=== PATIENT | female | born 1960 | race Caucasian/White ===

== ENCOUNTER 2017-02-13 09:10 | Observation (INO) | payer MEDICAID ==
--- NOTE | 2017-02-13 09:42 | CPEKG ---
Heart Rate: 77 RR Interval: 779 P-R Interval: 156 QRSD Interval: 100 QT Interval: 412 QTC Interval: 467 P Nebo: -6 QRS Nebo: 11 T Wave Nebo: 10 EKG Severity - BORDERLINE ECG - EKG Impression: SINUS RHYTHM EKG Impression: VENTRICULAR PREMATURE COMPLEX EKG Impression: BORDERLINE R WAVE PROGRESSION, ANTERIOR LEADS Electronically Signed By: Kurt Zaldivar 13-Feb-2017 12:02:57
[2017-02-13 09:52] LABS: % IMMATURE GRANULYOCYTES 0.2 % (0.0-1.1); ABSOLUTE IMMATURE GRANULOCYTES 0.01 10^3/uL (0.00-0.10); ADD DIFF? NO; ADD MORPH? NO; ADD SCAN? NO; ATYPICAL LYMPHOCYTE FLAG 0 (0-99); FRAGMENT RBC FLAG 0 (0-99); HEMATOCRIT 47.6 % (38.0-47.0); HEMOGLOBIN 15.8 g/dL (12.6-16.3); LEFT SHIFT FLG 0 (0-99); LIPEMIA HEMOLYSIS FLAG 80 (0-99); MEAN CELL HEMOGLOBIN 31.4 pg (27.9-34.1); MEAN CELL HEMOGLOBIN CONCENTR. 33.2 g/dL (32.4-36.7); MEAN CELL VOLUME 94.6 fL (81.5-99.8); MEAN PLATELET VOLUME 10.1 fL (8.7-11.7); PLATELET CLUMPS FLAG 20 (0-99); PLATELET COUNT 222 10^3/uL (150-400); RED BLOOD CELL COUNT 5.03 10^6/uL (4.18-5.33); RED CELL DISTRIBUTION WIDTH 13.2 % (11.5-15.2)
--- NOTE | 2017-02-13 09:53 | EDPHY ---
H & P Stated Complaint: "pulling and tugging" sensation to left chest since 8am Time Seen by Provider: 02/13/17 09:33 HPI/ROS: CHIEF COMPLAINT: Left-sided chest discomfort HISTORY OF PRESENT ILLNESS: 56-year-old female with medical history significant for Moyer disease, mitral valve replacement with prosthesis in 2009 , arrives via private vehicle after she woke with left-sided chest "tugging" at 8:00 a.m. today lasting approximately 345 minutes now by enlarged resolved. Not described as a tearing . Not described as pleuritic. This discomfort awoke her. Was associated with dizziness, left arm discomfort, dyspnea, near syncope. No diaphoresis. No headache. No back pain. No abdominal pain. No nausea or vomiting. No peripheral edema She hikes 3-4 times per week approximately 1/4 mi and notes a decrease in her exercise ability recently. She last hiked 25 minutes yesterday and notes an increase in the left-sided chest "tugging" as well as dyspnea yesterday. PRIMARY CARE PROVIDER:Dr. Pilo House. Dr. Carlyle Faust. Dr. Michele REVIEW OF SYSTEMS: A ten point review of systems was performed and is negative with the exception of the items mentioned in the HPI PAST MEDICAL & SURGICAL HISTORY: Moyer disease. Mitral valve replacement w/ prosthesis 2009 SOCIAL HISTORY: Nonsmoker. No illicit drug use PHYSICAL EXAM (Prior to examination, patient consented to physical exam, hands were washed and my usual and customary physical exam procedures followed) 1) GENERAL: Well-developed, well-nourished, alert and oriented. Appears to be in no acute distress. 2) HEAD: Normocephalic 3) HEENT: Pupils equal, round, reactive to light bilaterally. Sclera anicteric. 4) NECK: Full range of motion, no meningeal signs. No bruit 5) LUNGS: Clear auscultation bilaterally, no wheezes, no rhonchi, no retractions. 6) HEART: Regular rate and rhythm 7) ABDOMEN: No guarding, no rebound, no focal tenderness, negative McBurney's, negative Bray's, negative Rovsing's, negative peritoneal sign, no palpable or pulsatile mass 8) MUSCULOSKELETAL: No peripheral edema or discoloration. 9) BACK: No CVA tenderness, no visual or palpable abnormality. 10) SKIN: No rash, no petechiae. DIFFERENTIAL DIAGNOSIS: In no particular order, including but not limited to myocardial ischemia, pulmonary embolus, Dissection,chest wall pain, pleural inflammation and pulmonary infectious causes. - Personal History LMP (Females 10-55): Post Menopausal - Medical/Surgical History Hx Asthma: No Hx Chronic Respiratory Disease: No Hx Diabetes: No Hx Cardiac Disease: Yes Hx Renal Disease: No Hx Cirrhosis: No Hx Alcoholism: No Hx HIV/AIDS: No Hx Splenectomy or Spleen Trauma: No Other PMH: Mitral valve disorder. - Social History Smoking Status: Never smoked Constitutional: Initial Vital Signs Temperature (C) 36.4 C 02/13/17 09:11 Heart Rate 81 02/13/17 09:11 Respiratory Rate 18 02/13/17 09:11 Blood Pressure 110/83 H 02/13/17 09:11 O2 Sat (%) 94 02/13/17 09:11 O2 Delivery Mode Room Air Allergies/Adverse Reactions: indomethacin [Indomethacin] Allergy (Intermediate, Verified 11/02/10 12:11) DIZZINESS yeast, dried Allergy (Unknown, Verified 11/02/10 12:11) Unknown Home Medications: Medication Instructions Recorded COUMADIN 11/02/10 OXYCODONE HCL 11/02/10 Percocet 11/02/10 Spironolactone 11/02/10 Aspirin EC [Aspirin EC 81 mg] 81 mg PO DAILY 01/23/11 Cephalexin [Keflex] 500 mg PO TID #30 cap 01/23/11 Warfarin Sodium [Coumadin] 7.5 mg PO DAILY 01/23/11 oxyCODONE/APAP 5/325 [Percocet tab PO PRN 01/23/11 5/325] Hydrocodone Bit/Acetaminophen 1 - 2 tab PO Q4-6PRN PRN #14 tab 01/07/13 [Vicodin 5/500] Promethazine HCl [Phenergan 25mg 25 mg PO TID PRN #10 tab 01/07/13 (RX)] Medical Decision Making - Diagnostics Imaging: Chest, PA and Lateral History: Chest pain, history of mitral valve replacement Comparison: January 06, 2013 Findings: Lungs are clear, without infiltrate or consolidation. Heart size and pulmonary vascularity are normal. Median sternotomy wires and a mitral valve replacement remain in place. There is no adenopathy or mass lesion. There is no pleural effusion or pneumothorax. Bones are unremarkable for age. Impression: No source for chest pain identified. Dictated By: Jonathan Moreno MD Images reviewed by myself and Dr Zaldivar ED Course/Re-evaluation: 9:46 a.m.: Discussed case with Dr. Zaldivar in the ER. 10:30 a.m.: Phone consultation with cardiology PA Steve Monge is familiar with the patient's medical history. He request patient be admitted the hospitalist service and Cardiology will consult. patient re-examined. She is asymptomatic. She agrees to admission 10:38 a.m.: Phone consultation with hospitalist Raquel, [facility] April Marquez . - Data Points Laboratory Results: Laboratory Results 02/13/17 09:33 02/13/17 09:33 02/13/17 02/13/17 02/13/17 09:33 09:33 09:33 WBC 6.60 10^3/uL 10^3/uL (3.80-9.50) RBC 5.03 10^6/uL 10^6/uL (4.18-5.33) Hgb 15.8 g/dL g/dL (12.6-16.3) Hct 47.6 % H % (38.0-47.0) MCV 94.6 fL fL (81.5-99.8) MCH 31.4 pg pg (27.9-34.1) MCHC 33.2 g/dL g/dL (32.4-36.7) RDW 13.2 % % (11.5-15.2) Plt Count 222 10^3/uL 10^3/uL (150-400) MPV 10.1 fL fL (8.7-11.7) Neut % (Auto) 49.8 % % (39.3-74.2) Lymph % (Auto) 41.8 % % (15.0-45.0) Henderson % (Auto) 5.5 % % (4.5-13.0) Eos % (Auto) 2.4 % % (0.6-7.6) Baso % (Auto) 0.3 % % (0.3-1.7) Nucleat RBC Rel Count 0.0 % % (0.0-0.2) Absolute Neuts (auto) 3.29 10^3/uL 10^3/uL (1.70-6.50) Absolute Lymphs (auto) 2.76 10^3/uL 10^3/uL (1.00-3.00) Absolute Monos (auto) 0.36 10^3/uL 10^3/uL (0.30-0.80) Absolute Eos (auto) 0.16 10^3/uL 10^3/uL (0.03-0.40) Absolute Basos (auto) 0.02 10^3/uL 10^3/uL (0.02-0.10) Absolute Nucleated RBC 0.00 10^3/uL 10^3/uL (0-0.01) Immature Gran % 0.2 % % (0.0-1.1) Immature Gran # 0.01 10^3/uL 10^3/uL (0.00-0.10) PT 19.5 SEC H SEC (12.0-15.0) INR 1.64 H (0.83-1.16) APTT 32.9 SEC SEC (23.0-38.0) Sodium 139 mEq/L mEq/L (134-144) Potassium 3.9 mEq/L mEq/L (3.5-5.2) Chloride 105 mEq/L mEq/L (97-110) Carbon Dioxide 26 mEq/l mEq/l (22-31) Anion Gap 8 mEq/L mEq/L (8-16) BUN 18 mg/dL mg/dL (7-23) Creatinine 0.7 mg/dL mg/dL (0.6-1.0) Estimated GFR > 60 Glucose 112 mg/dL H mg/dL (70-100) Calcium 9.6 mg/dL mg/dL (8.5-10.4) Troponin I 0.015 ng/mL ng/mL (0-0.034) Departure - Departure Disposition: Home, Routine, Self-Care Clinical Impression: Subtherapeutic international normalized ratio (INR), History of mitral valve repair Chest pain Qualifiers: Chest pain type: unspecified Qualified Code(s): R07.9 - Chest pain, unspecified Condition: Fair
[2017-02-13 09:57] LABS: ANION GAP 8 mEq/L (8-16); CALCIUM 9.6 mg/dL (8.5-10.4); CARBON DIOXIDE 26 mEq/l (22-31); CHLORIDE 105 mEq/L (97-110); CREATININE 0.7 mg/dL (0.6-1.0); GLOMERULAR FILTRATION RATE > 60; GLUCOSE 112 mg/dL (70-100); POTASSIUM 3.9 mEq/L (3.5-5.2); SODIUM 139 mEq/L (134-144)
[2017-02-13 10:09] LABS: TROPONIN I 0.015 ng/mL (0-0.034)
[2017-02-13 10:10] LABS: INR 1.64 (0.83-1.16); PROTIME(PATIENT) 19.5 SEC (12.0-15.0)
[2017-02-13 10:11] LABS: APTT 32.9 SEC (23.0-38.0)
[2017-02-13] MEDS ORDERED: ONDANSETRON 4 MG/2 ML VIAL IVP PRN (11:43)
[2017-02-13] MEDS ORDERED: ONDANSETRON DISINTEGRATING 4 MG TAB PO PRN (11:43)
[2017-02-13] MEDS ORDERED: ACETAMINOPHEN 325 MG TAB PO PRN (11:43)
[2017-02-13] MEDS ORDERED: ALPRAZolam 0.25 MG TAB PO PRN (12:44)
--- NOTE | 2017-02-13 13:55 | CPEKG ---
Heart Rate: 72 RR Interval: 833 P-R Interval: 148 QRSD Interval: 100 QT Interval: 416 QTC Interval: 456 P Andover: -1 QRS Andover: 29 T Wave Andover: 22 EKG Severity - NORMAL ECG - EKG Impression: SINUS RHYTHM Electronically Signed By: Arthur Mittal 13-Feb-2017 21:22:52
--- NOTE | 2017-02-13 14:05 | GHP ---
[f rep st] HISTORY AND PHYSICAL DATE OF ADMISSION: 02/13/2017 CHIEF COMPLAINT: Left-sided chest pain. HISTORY OF PRESENT ILLNESS: Patient is a 56-year-old female, followed by Dr. Butts with Cardiology, whose past medical history includes Moyer disease, mitral valve replacement in 2009, who presented after she awoke suddenly with sharp left-sided chest pain. It felt like a tugging in the left upper chest at 8 a.m. It lasted approximately 30 minutes. However, she still has residual pain that is dull and achy in nature. She had some dizziness, mild nausea, and left hand numbness this morning. Denies PND, pillow orthopnea, or peripheral edema. She hikes 3-4 times a week, approximately 1/8 of a mile, and has noted that it has become more difficult and feels short of breath, along with an increased tugging sensation in her chest. She noted dyspnea with her hike yesterday. PRIMARY DUDE RANCH MANAGER: Dr. Faust. REVIEW OF SYSTEMS: I completed a 10-point review of systems, negative except as noted in HPI. PAST MEDICAL HISTORY: Pre-diabetes, mitral valve repair, obesity, hyperlipidemia, SERGIO on CPAP. PAST SURGICAL HISTORY: Mitral valve repair in 2009. Hysterectomy in 2002. SOCIAL HISTORY: Quit tobacco in 1999. Occasional alcohol. Lives in [facility]. Used to be a neuroscientist. FAMILY HISTORY: no CAD MEDICATIONS: See medication reconciliation. ALLERGIES: Indomethacin and yeast. PHYSICAL EXAM: VITAL SIGNS: Temperature 36.7, blood pressure 117/75, heart rate 70s, respirations 18, 94% on room air. GENERAL: Obese white female in no acute distress. HEENT: PERRLA. EOMI. Oropharynx clear. CV: Regular rate and rhythm. No murmurs, gallops, or rubs. Some reproducible component of left upper chest discomfort. No peripheral edema. LUNGS: Clear to auscultation. No crackles. GI: Obese. Soft, nontender, nondistended. Positive bowel sounds. : No Mera. MUSCULOSKELETAL: Has 5/5 upper and lower extremity strength. NEURO: 2 through 12 intact. PSYCH: Alert oriented x3. LABS: WBC 6.6, hemoglobin 15, hematocrit 47, platelets 222. D-dimer is pending. INR is 1.6. PT is 19. Sodium 139, potassium 3.9, chloride 105, carbon dioxide 26, BUN 18, creatinine 0.7. Glucose 112. Troponin 0.015. BNP is 165. IMAGING: X-ray: Personally reviewed by me. No sternotomy wires in place. No opacity. Mild blunting of costophrenic angles. EKG: Personally reviewed by me. Poor R-wave progression in anterior leads. There is an S1, Q3, and T-wave inversion in 3. Do not have old [employer] to compare. REVIEW OF PRIOR RECORDS: 1. Echo in 10/2010: EF was 50%. 2. Catheterization in 10/2010: Severe MR and mild CAD. 3. Per Steve with Cardiology: Had recent echocardiogram and nuclear stress test in June of 2016 that were unremarkable. ASSESSMENT/PLAN: 1. Atypical chest pain: Differential includes acute coronary syndrome versus pulmonary embolism versus musculoskeletal versus stress. Patient does report increased stress as of recently related to employment. There is some reproducibility on my exam. She had a recent negative stress test. Will cycle troponins and EKG. Will check a D-dimer given pain worse with inspiration. Will also check an echocardiogram. Will monitor on telemetry. 2. Mitral valve replacement: INR is subtherapeutic. Will bridge with full dose Lovenox and Coumadin. 3. Hyperlipidemia. Continue statin. 4. Obstructive sleep apnea. Continue CPAP. DIET: Cardiac. DISPOSITION: Patient warrants observation admission given atypical chest pain warranting serial enzymes, as well as telemetry. /[id number]/MODL MTDD
[2017-02-13] MEDS: ENOXAPARIN 100 MG/ML SYR SC SCH ×2 (15:25→20:17)
--- NOTE | 2017-02-13 15:47 | SOAPPROG ---
[facility] Progress Note Assessment/Plan: Assessment: Cardiology ([facility]) 1. Left-sided chest "tugging" with exertion yesterday and upon waking this morning associated with pain, numbness, and tingling down her left arm. There was was related lightheadedness and shortness of breath. Those symptoms have resolved and there is now a residual chronic achiness in the same area that is reproducible to palpation. She associates these symptoms with those felt immediately following her aortic valve replacement surgery in 2009 that have not recurred until now. Her symptoms do not have a pleuritic or positional component. She denies any antecedent infectious illness. Initial troponin was negative. Her EKG is negative for ischemic change. Differential diagnosis includes ACS vs. AVR dysfunction vs. aortic dissection vs. PE vs. MSK (? nerve entrapment 2/2 tingling down arm). I suspect her symptoms are not cardiogenic nature. 2. Minimal CAD by preop [facility] in 2009. She had normal nuclear imaging through our office in June 2016. 3. Status post [address] [place]ar AVR in October 2010. Valve was functioning normally with normal gradients by echocardiogram in June 2016. 4. Chronic coumadin anticoagulation. INR is currently subtherapeutic at 1.3. 5. SERGIO treated with CPAP. Plan: 1. Serial cardiac enzymes. 2. D-dimer and ntBNP pending. 3. Lovenox bridging due to subtherapeutic INR with continuation of coumadin. 4. Echocardiogram. 5. Chest CTA if positive D-dimer. 6. If serial cardiac enzymes are all negative patient can likely be discharged tomorrow with cardiology follow up. 02/13/17 16:41 02/13/17 16:47 Subjective: Chest tugging is resolved at this time. She was sleeping on her left side when the pain started due to injury to her right shoulder. She is tender to palpation in the left anterior and axillary regions of her chest. She denies any shortness of breath, palpitations, diaphoresis, She denies any fever or chills. She states she has been under a great deal of stress over the past 6 weeks. Objective: Vital Signs Temp Pulse Resp BP Pulse Ox 36.7 C 71 18 117/75 94 02/13/17 10:59 02/13/17 10:59 02/13/17 10:59 02/13/17 10:59 02/13/17 10:59 PT 19.5 SEC (12.0-15.0) H 02/13/17 09:33 INR 1.64 (0.83-1.16) H 02/13/17 09:33 Physical Exam - Physical Exam General Appearance: WD/WN, alert, no apparent distress, obese Respiratory: chest non-tender, lungs clear, normal breath sounds Cardiac/Chest: normal peripheral pulses, other (S2 c/w mechanical aortic valve) Abdomen: normal bowel sounds, non-tender, soft Extremities: No swelling Neuro/Psych: no motor/sensory deficits, alert, normal mood/affect, oriented x 3 ICD10 Worksheet Patient Problems: Problems Problem Status Onset Chest pain Acute History of mitral valve repair Acute Subtherapeutic international normalized ratio (INR) Acute
[2017-02-13] MEDS ORDERED: OXYCODONE/APAP 5/325 TAB PO PRN (17:41)
[2017-02-13] MEDS ORDERED: WARFARIN SODIUM 5 MG TAB PO SCH (21:00)
[2017-02-14 06:29] LABS: INR 1.9 (0.83-1.16); PROTIME(PATIENT) 21.9 SEC (12.0-15.0)
[2017-02-14] MEDS: ENOXAPARIN 100 MG/ML SYR SC SCH (08:25)
[2017-02-14] MEDS ORDERED: Herbals/Supplements -Info Only PO SCH (09:00)
[2017-02-14] MEDS ORDERED: CALCIUM CARBONATE 500 MG TAB PO SCH (12:00)
[2017-02-14] MEDS ORDERED: ATORVASTATIN CALCIUM 20 MG TAB PO SCH (12:00)
[2017-02-14] MEDS ORDERED: OMEGA-3 FATTY ACIDS 1,000 MG CAP PO SCH (12:00)
[2017-02-14] MEDS ORDERED: CHOLECALCIFEROL VIT D3 1,000 UNITS TAB PO SCH (12:00)
[2017-02-14 13:41] VITALS: RESP 16
[2017-02-14 14:26] VITALS: BP 105/73; PULSE 70; TEMP 97.5; O2SAT 94
--- NOTE | 2017-02-14 14:26 | ECHO ---
[id number] + + [address] : : [place] [address] : : [phone] + + Adult Echocardiographic Report + --------+ :Name: BRYANT MOORE JStudy Date: 02/13/2017 01:59 PM : : Hospital Admission Number: [id number] Locat ion: 142: :: 1960 Gender: Female Height: 64 in : :Age: 56 yrs Race: WH Weight: 239 l b : :Reason For Study: MVR/SOB/Chest pain : : BSA: 2.1 mete rs2 : + --------+ MMode/2D Measurements \T\ Calculations IVSd: 0.55 cm LVIDd: 5.4 cm EDV(Teich): Ao root diam: LVPWd: 1.1 cm 138.6 ml 3.9 cm LA dimension: 4.4 cm LVLd ap4: 7.2 cm SV(MOD-sp4): EDV(MOD-sp4): 40.0 ml 54.0 ml LVLs ap4: 5.8 cm ESV(MOD-sp4): 14.0 ml EF(MOD-sp4): 74.1 % Normal Measurement Values: + + :LVIDd (3.5-5.7cm) IVSd (0.6-1.1cm) LVPWd (0.6-1.1cm) Aortic Root (2.0-3.7cm)Left Atrium (1.5-4.0cm): :LV Vol(d) (76-115ml) LV Vol(s) (29-48ml) Ejec Fraction (50-65%)PV Poncho (0.6- 1.2m/s) TV Poncho (0.4-1.0m/s) : :MV E Poncho (0.8-1.0m/s)MV A Poncho (0.3-1.0m/s)LVOT Poncho (0.7-1.2m/s) Asc Ao Poncho ( 0.9-1.8m/s) : + + Doppler Measurements \T\ Calculations MV E max poncho: 145.0 cm/sec MV V2 max: 140.5 cm/sec Ao V2 max: 108.0 cm/sec MV A max poncho: 111.0 cm/sec MV max P.9 mmHg Ao max P.7 mmHg MV E/A: 1.3 MV V2 mean: 85.3 cm/sec Ao mean P.0 mmHg MV dec time: 0.26 sec MV mean P.0 mmHg Ao V2 mean: 76.4 cm/sec MV V2 VTI: 38.3 cm Ao V2 VTI: 22.1 cm Left Ventricle The left ventricle is normal in size. There is normal left ventricular wall thickness. Left ventricular systolic function is normal. Ejection Fraction = 65-70%. Septal motion is consistent with post-operative state. Right Ventricle The right ventricle is normal in size and function. Atria The left atrium is mildly dilated. Right atrial size is normal. The interatrial septum is intact with no evidence for an atrial septal defect. Mitral Valve There is a bi-leaflet (St. Eczar) mechanical prosthesis. mean gradient 4 mmhg. Tricuspid Valve Normal tricuspid valve. There is trace tricuspid regurgitation. Aortic Valve The aortic valve is trileaflet. The aortic valve opens well. There is no aortic stenosis. There is no aortic insufficiency. Pulmonic Valve The pulmonic valve is normal in structure and function. There is no pulmonic valvular regurgitation. Great Vessels The aortic root is normal size. Pericardium/Pleural There is no pericardial effusion. There is a fat pad seen. Conclusion A complete two-dimensional transthoracic echocardiogram was performed (2D, M-mode, Doppler and color flow Doppler). The study was technically difficult. Left ventricular systolic function is normal. Septal motion is consistent with post-operative state. Ejection Fraction = 65-70%. The left atrium is mildly dilated. There is trace tricuspid regurgitation. There is a fat pad seen. There is a bi-leaflet (St. Cezar) mechanical prosthesis. mean gradient 4 mmhg Final Reading Physician: Selene Solano signed on 02/14/2017 02:25 PM Ordering Physician: Anita Marquez Performed By: Deanna Coleman ERIC
--- NOTE | 2017-02-14 14:33 | HOSPPROG ---
Hospitalist Progress Note Assessment/Plan: #Atypical CP: suspect musk in nature. Negative trops, EKG and Dimer. TTE pending , but can FU this outpatient #h/o MVR: INR subtherapeutic. Bridge with Lovenox. Repeat INR Friday #HLD: statin #Disp: DC today Subjective: CP with movement of arm and side this morning Objective: Vital Signs Temp Pulse Resp BP Pulse Ox 36.4 C 70 16 105/73 94 02/14/17 14:25 02/14/17 14:25 02/14/17 14:25 02/14/17 14:25 02/14/17 14:25 PT 21.9 SEC (12.0-15.0) H 02/14/17 06:10 INR 1.90 (0.83-1.16) H 02/14/17 06:10 - Physical Exam Constitutional: no apparent distress, obese Eyes: PERRL Ears, Nose, Mouth, Throat: moist mucous membranes, hearing normal Cardiovascular: regular rate and rhythym, no murmur, rub, or gallop, other ( some reproducibility of CP ) Respiratory: no respiratory distress, no rales or rhonchi, clear to auscultation Gastrointestinal: normoactive bowel sounds, soft, non-tender abdomen Genitourinary: no bladder fullness Skin: warm Neurologic: AAOx3 Psychiatric: interacting appropriately, anxious ICD10 Worksheet Patient Problems: Problems Problem Status Onset Chest pain Acute History of mitral valve repair Acute Subtherapeutic international normalized ratio (INR) Acute
--- NOTE | 2017-02-14 14:58 | GDS ---
[f rep st] DISCHARGE SUMMARY DISCHARGE DIAGNOSES: 1. Atypical chest pain. 2. History of mitral valve replacement. 3. Hyperlipidemia. 4. Obstructive sleep apnea. HPI: Patient is a 56-year-old female with history of Moyer disease, mitral valve replacement 2009, who presented after a week, awakening suddenly with sharp, left-sided chest pain. She described it as a tugging sensation that occurred day of admission at 8 a.m. which lasted 30 minutes. After the sharp pain resolved, she had residual pain that was dull and achy in nature. She has had similar p ain like this in the past when hiking, but this was worsen and the reason why she came in for evalua tion. Along with the pain she had mild, dizziness, and left handed numbness. Denies PND, pillow or thopnea, or peripheral edema. She hikes 3-4 times a week approximately a 1/8 mile high elevation. Over the last week, she has felt more short of breath with this tugging sensation. HOSPITAL COURSE: 1. Atypical chest pain: Differential included ACS versus pulmonary embolism versus musculoskeletal . Suspect this is musculoskeletal as she did have reproducibility on exam and with movement. EKG a nd troponins were negative for ischemia. D-dimer was negative. We did repeat an echocardiogram whi ch is pending at this time. I think it is reasonable that she can discharge and followup echo given suspicion as this is mainly musculoskeletal. She should follow up with Dr. Butts. 2. Mitral valve replacement. INR is subtherapeutic. Will bridge with Lovenox and Coumadin. Repea t INR on Friday. I have provided her a script for this lab. 3. Hyperlipidemia. Statin. 4. SERGIO. Continue CPAP. DISPOSITION: Patient is stable for discharge. FOLLOWUP: 1. Friday, February [address] Butts, cardiology. /[id number]/MODL
== END 2017-02-14 14:38 | disposition home or self-care (01) ==
LOC: F1N 11:21
PROVIDERS: ADMIT Internal Medicine; ATTEND Internal Medicine
DX: R07.89 Other chest pain (principal); E78.5 Hyperlipidemia, unspecified; G47.33 Obstructive sleep apnea (adult) (pediatric); Z95.2 Presence of prosthetic heart valve; Z79.01 Long term (current) use of anticoagulants
CPT/HCPCS: 71020; 93005; 93306; 99285; G0378; J1650

== ENCOUNTER 2017-04-29 19:12 | Emergency (ER) | payer MEDICAID ==
[2017-04-29 19:25] VITALS: TEMP 98.4
[2017-04-29] MEDS ORDERED: ONDANSETRON 4 MG/2 ML VIAL IVP ONE (20:07)
[2017-04-29 20:27] LABS: % IMMATURE GRANULYOCYTES 0.3 % (0.0-1.1); ABSOLUTE IMMATURE GRANULOCYTES 0.04 10^3/uL (0.00-0.10); ADD DIFF? NO; ADD MORPH? NO; ADD SCAN? NO; ATYPICAL LYMPHOCYTE FLAG 0 (0-99); FRAGMENT RBC FLAG 0 (0-99); HEMATOCRIT 43.5 % (38.0-47.0); LEFT SHIFT FLG 0 (0-99); LIPEMIA HEMOLYSIS FLAG 90 (0-99); MEAN CELL HEMOGLOBIN 31.2 pg (27.9-34.1); MEAN CELL HEMOGLOBIN CONCENTR. 34.5 g/dL (32.4-36.7); MEAN CELL VOLUME 90.4 fL (81.5-99.8); PLATELET CLUMPS FLAG 40 (0-99); PLATELET COUNT 208 10^3/uL (150-400); RED BLOOD CELL COUNT 4.81 10^6/uL (4.18-5.33); RED CELL DISTRIBUTION WIDTH 12.5 % (11.5-15.2)
[2017-04-29 20:41] LABS: ALANINE AMINOTRANSFERASE 44 IU/L (9-52); ALBUMIN 4.2 g/dL (3.5-5.0); ALKALINE PHOSPHATASE 69 IU/L (38-126); ANION GAP 8 mEq/L (8-16); ASPARTATE AMINOTRANSFERASE 32 IU/L (14-46); BILIRUBIN,TOTAL 1.4 mg/dL (0.1-1.4); CALCIUM 9.9 mg/dL (8.5-10.4); CARBON DIOXIDE 22 mEq/l (22-31); CHLORIDE 104 mEq/L (97-110); CREATININE 0.8 mg/dL (0.6-1.0); GLOMERULAR FILTRATION RATE > 60; GLUCOSE 125 mg/dL (70-100); POTASSIUM 4.1 mEq/L (3.5-5.2); SODIUM 134 mEq/L (134-144); TOTAL PROTEIN 7.1 g/dL (6.3-8.2)
[2017-04-29 22:26] VITALS: O2SAT 92
[2017-04-29 22:30] LABS: COLOR YELLOW; LEUKOCYTE ESTERASE,URINE 1+ (NEGATIVE); NITRITE,URINE NEGATIVE (NEGATIVE)
[2017-04-29 22:37] LABS: BACTERIA TRACE /hpf (NONE SEEN); MUCUS TRACE /lpf (NONE-1+); RBC,URINE 50-182 /hpf (0-3)
--- NOTE | 2017-04-29 22:40 | EDPHY ---
H & P Stated Complaint: LLQ pain Source: Patient - Medical/Surgical History Hx Asthma: No Hx Chronic Respiratory Disease: No Hx Diabetes: No Hx Cardiac Disease: Yes Hx Renal Disease: No Hx Cirrhosis: No Hx Alcoholism: No Hx HIV/AIDS: No Hx Splenectomy or Spleen Trauma: No Other PMH: Mitral valve disorder. 2003 hysterectomy; mvr 2009; - Social History Smoking Status: Former smoker Time Seen by Provider: 04/29/17 19:46 HPI/ROS: CHIEF COMPLAINT: Abdominal pain HISTORY OF PRESENT ILLNESS: This is a 56-year-old female presenting to the emergency department complaining of left lower quadrant pain onset yesterday evening increasing pain this morning with nausea and fever. Patient states she did have diarrhea last week but that seemed to resolve yesterday she had what she thought was maybe some constipation took some Colace this morning and had a normal bowel movement. Patient states she has had a history of ovarian issues but has had a hysterectomy 2002 and ovarian rupture 2004. Patient states she does not have a history of a diverticulitis or irritable bowel syndrome. REVIEW OF SYSTEMS: Constitutional: Intermittent fever, no chills. Decreased p.o. intake Eyes: No discharge. No blurred vision ENT: No sore throat. Cardiovascular: No chest pain, no palpitations. Respiratory: No cough, no shortness of breath. Gastrointestinal: abdominal pain, no vomiting. Nausea Genitourinary: No hematuria. Musculoskeletal: No back pain. Skin: No rashes. Neurological: No headache. (Judith Sorensen) - Physical Exam Exam: General Appearance: Alert, no distress. Eyes: Pupils equal and round no pallor or injection. ENT, Mouth: Mucous membranes moist. Respiratory: There are no retractions, lungs are clear to auscultation. Cardiovascular: Regular rate and rhythm. Gastrointestinal: Abdomen is soft nondistended, left lower quadrant tenderness on palpation, no masses, bowel sounds hyperactive. Neurological: No focal deficits Skin: Warm and dry, no rashes. Musculoskeletal: Neck is supple nontender. Extremities: symmetrical, full range of motion. Psychiatric: Patient is oriented X 3, acting appropriately (Judith Sorensen) Constitutional: Initial Vital Signs Temperature (C) 36.9 C 04/29/17 19:22 Heart Rate 100 04/29/17 19:22 Respiratory Rate 22 H 04/29/17 19:22 Blood Pressure 141/108 H 04/29/17 19:22 O2 Sat (%) 92 04/29/17 19:22 O2 Delivery Mode Room Air Allergies/Adverse Reactions: indomethacin [Indomethacin] Allergy (Intermediate, Verified 04/29/17 19:22) DIZZINESS yeast, dried Allergy (Unknown, Verified 04/29/17 19:22) Unknown Home Medications: Medication Instructions Recorded Warfarin Sodium [Coumadin 5MG (*)] 7.5 mg PO HS 01/23/11 oxyCODONE/APAP 5/325 [Percocet 1 tab PO DAILY PRN 01/23/11 5/325 (*)] ALPRAZolam [Xanax 0.25 MG (*)] 0.25 mg PO HS PRN 02/13/17 Atorvastatin Calcium [Lipitor 20 20 mg PO DAILY@12 02/13/17 mg (*)] Calcium Carbonate [Calcium] 500 mg PO DAILY@12 02/13/17 Cholecalciferol Vit D3 [Vitamin D3 5,000 units PO DAILY@12 02/13/17 (*)] Herbals/Supplements -Info Only 1 ea PO DAILY 02/13/17 [place]-3 Fatty Acids [Fish Oil 1000 3,000 mg PO DAILY@12 02/13/17 mg (*)] Enoxaparin [Lovenox 100 MG (*)] 100 mg SC BID #10 syr 02/14/17 oxyCODONE/APAP 5/325 [Percocet 1 tab PO DAILY PRN #5 tab 02/14/17 5/325 (*)] Ciprofloxacin [Cipro] 500 mg PO BID #14 tab 04/29/17 metroNIDAZOLE [Flagyl 500 mg (*)] 500 mg PO TID #21 tab 04/29/17 Medical Decision Making - Diagnostics Imaging Results: Imaging Impressions Abdomen CT 04/29/17 22:36 Impression: 1. Diverticulitis of descending colon. 2. Hysterectomy. 3. Nonspecific small subtle lesion in right lobe of liver. I telephoned results to Judith Sorensen NP, at 2315 hours. ED Course/Re-evaluation: Discussed the plan of care: CBC, CMP, UA, IV fluids for dehydration, abdominal pelvis CT with IV contrast 2230: Patient re-evaluation---> decrease in nausea, 2/10 left lower quadrant pain acting appropriately 2330: Spoke Dr. Cao CT shows diverticulitis, no mass no appendicitis. Discussed these results with patient 2345: Antibiotics ordered, patient states has not been on warfarin since beginning of this year (Judith Sorensen) Differential Diagnosis: Other differential diagnosis considered but not limited to appendicitis, abdominal mass, abscess, and perforated diverticulitis (Judith Sorensen) - Data Points Laboratory Results: Laboratory Results 04/29/17 20:12 04/29/17 20:12 Medications Given: Discontinued Medications Metronidazole/Sodium Chloride (Flagyl 500 Mg (Premix)) 100 mls @ 100 mls/hr IV EDNOW ONE PRN Reason: Protocol Stop: 04/30/17 00:27 Last Admin: 04/30/17 00:05 Dose: 100 mls Morphine Sulfate (Morphine) 1 mg IVP EDNOW ONE Stop: 04/29/17 20:08 Last Admin: 04/29/17 20:25 Dose: 1 mg Morphine Sulfate (Morphine) 1 mg IVP EDNOW ONE Stop: 04/29/17 23:08 Last Admin: 04/29/17 22:25 Dose: 1 mg Ondansetron HCl (Zofran) 4 mg IVP EDNOW ONE Stop: 04/29/17 20:08 Last Admin: 04/29/17 20:25 Dose: 4 mg Departure - Departure Disposition: Home, Routine, Self-Care Clinical Impression: Diverticulitis Qualifiers: Diverticulitis site: unspecified part of intestinal tract Diverticulitis bleeding: without bleeding Diverticulitis complication: without perforation or abscess Qualified Code(s): K57.92 - Diverticulitis of intestine, part unspecified, without perforation or abscess without bleeding Condition: Good Instructions: Diverticulitis (ED), Diverticulitis Diet (ED) Additional Instructions: 1. Take all antibiotics as prescribed. Your given her 1st dose of Flagyl here in the ED 2. Follow up with Dr. House this week or next week 3. For any worsening symptoms or abdominal pain nausea vomiting return to the ER Referrals: Pilo House MD [Primary Care Provider] - As per Instructions Prescriptions: Ciprofloxacin [Cipro] 500 mg PO BID #14 tab metroNIDAZOLE [Flagyl 500 mg (*)] 500 mg PO TID #21 tab
[2017-04-29] MEDS ORDERED: IOPAMIDOL (ISOVUE-300) 100 ML BTL ONE (22:42)
[2017-04-30 01:12] VITALS: BP 136/79; PULSE 78; RESP 18
== END 2017-04-30 01:12 | disposition home or self-care (01) ==
DX: K57.92 Diverticulitis of intestine, part unspecified, without perforation or abscess without bleeding (principal); Z79.01 Long term (current) use of anticoagulants; Z87.891 Personal history of nicotine dependence; Z90.710 Acquired absence of both cervix and uterus
CPT/HCPCS: 96365; J2405; Q9967

== ENCOUNTER → 2017-08-26 | Outpatient (CLI) | payer MEDICAID ==
[~2017-08-26] MED LIST: IOPAMIDOL (ISOVUE-300) 100 ML BTL ONE
== END ==
LOC: FIMAGING 15:16
PROVIDERS: ATTEND Nurse Practitioner Adult Health
DX: R10.32 Left lower quadrant pain (principal)
CPT/HCPCS: Q9967

== ENCOUNTER 2017-09-03 11:42 | Day surgery (SDC) | payer MEDICAID ==
[2017-09-03] MEDS ORDERED: LR 1,000 ML IV ONE (12:19)
--- NOTE | 2017-09-03 12:57 | PDANEPAE ---
ANE Past Medical History - Cardiovascular History Hx Hypertension: No Hx Arrhythmias: No Hx Chest Pain: No Hx Coronary Artery / Peripheral Vascular Disease: No Hx CHF / Valvular Disease: No Hx Palpitations: No Cardiovascular History Comment: Mitral valve disorder- repair ;. BP : 110/70 ;on Lipitor - Pulmonary History Hx COPD: No Hx Asthma/Reactive Airway Disease: No Hx Recent Upper Respiratory Infection: No Hx Oxygen in Use at Home: Yes Hx Sleep Apnea: Yes Sleep Apnea Screening Result - Last Documented: Positive Pulmonary History Comment: SERGIO- USES CPAP - Neurologic History Hx Cerebrovascular Accident: No Hx Seizures: No Hx Dementia: No - Endocrine History Hx Diabetes: No - Renal History Hx Renal Disorders: No - Liver History Hx Hepatic Disorders: No - Neurological & Psychiatric Hx Hx Neurological and Psychiatric Disorders: Yes Neurological / Psychiatric History Comment: L5/S1 bulging disc- RAFAELA - Cancer History Hx Cancer: No - Congenital Disorder History Hx Congenital Disorders: No - GI History Hx Gastrointestinal Disorders: Yes Gastrointestinal History Comment: diverticulitis -placed on antiBx 05-03. - Chronic Pain History Chronic Pain: No - Surgical History Prior Surgeries: mitral valve -. hysterectomy 2002. laser procedure to remove birthmark on face-1982 ANE Review of Systems Review of Systems: - Exercise capacity METS (RN): 4 METS ANE Patient History - Allergies Allergies/Adverse Reactions: indomethacin [Indomethacin] Allergy (Intermediate, Verified 07/04/17 10:57) DIZZINESS yeast, dried Allergy (Unknown, Verified 07/04/17 10:57) Unknown - Home Medications Home Medications: Warfarin Sodium [Coumadin 5MG (*)] 7.5 mg PO HS 01/23/11 [Last Taken 02/12/17] Atorvastatin Calcium [Lipitor 20 mg (*)] 20 mg PO DAILY@02/13/17 [Last Taken 02/12/17] Calcium Carbonate [Calcium] 500 mg PO DAILY@02/13/17 [Last Taken 02/12/17] Herbals/Supplements -Info Only 1 ea PO DAILY 02/13/17 [Last Taken 02/12/17] [place]-3 Fatty Acids [Fish Oil 1000 mg (*)] 3,000 mg PO DAILY@02/13/17 [Last Taken 02/12/17] Coq-10 07/04/17 [Last Taken Unknown] - NPO status NPO Since - Liquids (Date): 09/03/17 NPO Since - Liquids (Time): 10:20 NPO Since - Solids (Date): 09/01/17 NPO Since - Solids (Time): 18:00 - Smoking Hx Smoking Status: Former smoker ANE Labs/Vital Signs - Vital Signs Blood Pressure: 109/72 Heart Rate: 86 Respiratory Rate: 20 O2 Sat (%): 95 Height: 163.83 cm Weight: 230 kg ANE Physical Exam - Airway Neck exam: FROM Mallampati Score: Class 2 Mouth exam: normal dental/mouth exam - Pulmonary Pulmonary: no respiratory distress, no rales or rhonchi, reduced air movement - Cardiovascular Cardiovascular: regular rate and rhythym, no murmur, rub, or gallop - ASA Status ASA Status: IV ANE Anesthesia Plan Anesthesia Plan: MAC
[2017-09-03] MEDS ORDERED: PROPOFOL 200 MG/20 ML VIAL ONE (12:58)
[2017-09-03] MEDS ORDERED: LIDOCAINE 2% 5 ML SDV ONE (12:58)
[2017-09-03] MEDS ORDERED: ALBUTEROL 3 ML DEYVIAL IH PRN (13:12)
[2017-09-03] MEDS ORDERED: ONDANSETRON 4 MG/2 ML VIAL IVP PRN (13:12)
[2017-09-03] MEDS ORDERED: NALOXONE HCL 0.4 MG/ML INJ IVP PRN (13:12)
[2017-09-03] MEDS ORDERED: LR 500 ML IV PRN (13:12)
--- NOTE | 2017-09-03 13:29 | GIREPORT ---
Formerly [facility] Surgical Services - Endoscopy Department Patient Name: Krysta Diaz Procedure Date: 09/03/2017 12:57 PM Patient Type: Outpatient Attending MD/ ER Physician: William Sherman MD Procedure: Colonoscopy Indications: Screening for colorectal malignant neoplasm Providers: William Sherman MD Medicines: General Anesthesia Complications: No immediate complications. Description of Procedure: After obtaining informed consent, the scope was passed under direct vis ion. Throughout the procedure, the patient's blood pressure, pulse, and oxyg en saturations were monitored continuously. The Colonoscope was introduced through the anus and advanced to the cecum, identified by appendiceal orifice and ileocecal valve. The colonoscopy was performed without difficulty. The patient tolerated the procedure well. The quality of th e bowel preparation was excellent. Findings: A 7 mm polyp was found in the transverse colon. The polyp was semi-pedunculated. The polyp was removed with a hot snare. Resection an d retrieval were complete. Verification of patient identification for the specimen was done. Estimated blood loss was minimal. A 3 mm polyp was found in the ascending colon. The polyp was sessile. T he polyp was removed with a cold biopsy forceps. Resection and retrieval w ere complete. Verification of patient identification for the specimen was d one. Estimated blood loss was minimal. Multiple medium-mouthed diverticula were found in the sigmoid colon. Estimated Blood Loss: Estimated blood loss: none. Post Op Diagnosis: - One 7 mm polyp in the transverse colon, removed with a hot snare. Res ected and retrieved. - One 3 mm polyp in the ascending colon, removed with a cold biopsy for ceps. Resected and retrieved. - Diverticulosis in the sigmoid colon. Recommendation: - Discharge patient to home. - Resume previous diet. - Continue present medications. - Await pathology results. - Repeat colonoscopy date to be determined after pending pathology resu lts are reviewed for surveillance. Attending Participation: I personally performed the entire procedure. William Sherman MD William Sherman MD 09/03/2017 1:29:03 PM This report has been signed electronically.William Sherman MD Number of Addenda: 0 Note Initiated On: 09/03/2017 12:57 PM Total Procedure Duration Time 0 hours 14 minutes 11 seconds [email or web address]
[2017-09-03 13:32] VITALS: PULSE 74
--- NOTE | 2017-09-03 13:33 | POSTANESTH ---
Post Anesthetic Evaluation Cardiovascular Status: Normal, Stable, Similar to Pre-Op Cond Respiratory Status: Normal, Stable, Similar to Pre-op Cond. Level of Consciousness/Mental Status: Can Participate in Eval Pain Control: Adequate, Prn Tx Ordered Nausea/Vomiting Control: Adequate, Prn Tx Ordered Complications Possibly Related to Anesthesia: None Noted
[2017-09-03 13:45] VITALS: TEMP 97.5; O2SAT 97
[2017-09-03 13:59] VITALS: RESP 18
[2017-09-03 14:22] VITALS: BP 119/76
== END 2017-09-03 15:05 | disposition home or self-care (01) ==
LOC: FSGY 11:42
PROVIDERS: ATTEND Internal Medicine Gastroenterology
DX: Z12.11 Encounter for screening for malignant neoplasm of colon (principal); D12.3 Benign neoplasm of transverse colon; K63.5 Polyp of colon; K57.30 Diverticulosis of large intestine without perforation or abscess without bleeding; R10.32 Left lower quadrant pain; R68.89 Other general symptoms and signs; E78.5 Hyperlipidemia, unspecified; G47.33 Obstructive sleep apnea (adult) (pediatric); I25.10 Atherosclerotic heart disease of native coronary artery without angina pectoris; Z79.01 Long term (current) use of anticoagulants; Z87.891 Personal history of nicotine dependence; Z95.2 Presence of prosthetic heart valve; Z90.710 Acquired absence of both cervix and uterus
CPT/HCPCS: J2704

== ENCOUNTER 2017-09-04 20:48 | Inpatient (IN) | payer MEDICAID ==
--- NOTE | 2017-09-04 21:03 | EDPHY ---
H & P Stated Complaint: had colonoscopy/polyps removed 09/03, worsening abd pain/ cramping/bleeding HPI/ROS: CHIEF COMPLAINT: Abdominal pain HISTORY OF PRESENT ILLNESS: This patient is an anticoagulated (Coumadin, Lovenox) 57 year old female with history of diverticulitis complaining of worsening abdominal pain, cramping, and bleeding following a colonoscopy and polypectomy yesterday 09/03/[address] Sherman, software engineer mobile. She discontinued her Coumadin on Friday prior to her procedure. She resumed her Coumadin last night (last dose 7.5 mg yesterday evening). She did take her Lovenox shot this morning as well. Today , she has passed many blood clots from her rectum, each the size of a " flattened acorn". She estimates about 15 teaspoons worth of blood in each of five to six episodes today. Her most recent episode was about 1.5 hours ago. She has been passing gas frequently as well. Her pain is mostly in the lower left where she has diverticula. She also has waves of nausea and generalized abdominal pain. About 2-3 hours ago, she began to feel dizzy and was eventually able to drive herself to the emergency department for evaluation. She denies chest pain, shortness of breath, headache, urinary complaints, or other associated symptoms. Of note, the patient had diverticulitis in April and was placed on Cipro and Flagyl at that time. When her symptoms recurred, her primary care provider prescribed Augmentin as she had an adverse reaction to Cipro and Flagyl. The patient states no diverticulitis was noted on her colonoscopy yesterday. REVIEW OF SYSTEMS: A ten point review of systems was performed and is negative with the exception of the items mentioned in the HPI. Past medical history: 1. Pre diabetic 2. Obesity 3. Hyperlipidemia (Atorvastatin) 4. Obstructive sleep apnea 5. Diverticulosis / diverticulitis Past surgical history: 1. Mitral valve repair (2009) (Coumadin, Lovenox) 2. Hysterectomy Family history: Noncontributory. Social history: Former neuroscientist. PCP. Giselle Dumont. Occasional alcohol use. Former smoker. 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 General Appearance: Alert. Vital signs reviewed. Blood pressure 109/81, heart rate 87. Eyes: Pupils equal and round, no conjunctival injection, no discharge. Anicteric. ENT, Mouth: Mucous membranes are moist, no oropharyngeal erythema or edema. Neck: No lymphadenopathy, supple. Respiratory: Lungs are clear to auscultation; no wheezes, rales, or rhonchi. Cardiovascular: Regular rate and rhythm; no murmur, rub, or gallop. Gastrointestinal: Diffuse abdominal tenderness, particularly left lower quadrant and suprapubic area. Abdomen is soft, no masses or organomegaly, bowel sounds normal. Skin: Warm and dry, no rashes on exposed skin, normal color. Back: Nontender to palpation over the thoracolumbar spine. No CVAT. Extremities: No lower extremity edema, no calf tenderness or swelling. Neurological: Alert and oriented. Moving all four extremities easily and equally. Psychiatric: Normal affect. - Personal History Current Tetanus/Diphtheria Vaccine: Unsure - Medical/Surgical History Hx Asthma: No Hx Chronic Respiratory Disease: No Hx Diabetes: No Hx Cardiac Disease: Yes Hx Renal Disease: No Hx Cirrhosis: No Hx Alcoholism: No Hx HIV/AIDS: No Hx Splenectomy or Spleen Trauma: No Other PMH: PMHx: Mitral valve disorder. PSHx: 2003 hysterectomy; mvr 2009 - Social History Smoking Status: Former smoker Constitutional: Initial Vital Signs Temperature (C) 36.6 C 09/04/17 20:53 Heart Rate 87 09/04/17 20:53 Respiratory Rate 16 09/04/17 20:53 Blood Pressure 109/81 H 09/04/17 20:53 O2 Sat (%) 97 09/04/17 20:53 O2 Delivery Mode Room Air O2 (L/minute) 2 Allergies/Adverse Reactions: indomethacin [Indomethacin] Allergy (Intermediate, Verified 07/04/17 10:57) DIZZINESS yeast, dried Allergy (Unknown, Verified 07/04/17 10:57) Unknown Home Medications: Medication Instructions Recorded Atorvastatin Calcium [Lipitor 20 20 mg PO DAILY@12 02/13/17 mg (*)] Herbals/Supplements -Info Only 1 ea PO DAILY 02/13/17 [place]-3 Fatty Acids [Fish Oil 1000 3,000 mg PO DAILY@12 02/13/17 mg (*)] Calcium Carbonate [Oyster Shell 500 mg PO DAILY@12 09/05/17 Calcium 500 mg (*)] Acetaminophen [Tylenol 325mg (*)] 650 mg PO Q4HRS PRN tab 09/07/17 Dicyclomine [Bentyl 20 MG (*)] 10 - 20 mg PO QID PRN #40 tab 09/07/17 Enoxaparin [Lovenox 120 MG (*)] 120 mg SQ BID #6 syr 09/07/17 Hydrocodone/APAP 5/325 [Olean 0.5 - 1 tab PO Q4HRS PRN #10 tab 09/07/17 5/325 (*)] Warfarin Sodium [Coumadin 5MG (*)] 7.5 mg PO HS #45 tab 09/07/17 Medical Decision Making - Diagnostics Imaging: Discussed imaging studies w/ call center representative Radiologist ED Course/Re-evaluation: Anticoagulated 57 year old female presents with worsening abdominal pain and BRBPR s/p colonoscopy and polypectomy yesterday. Plan for labs including CBC, BMP, and INR. Plan to consult with gastroenterology. IV established. Plan to administer 1L IV NS. Plan to administer 4mg IV Zofran and 25mcg IV Fentanyl for symptom relief. 21:[address] Penaloza, software engineer mobile verification engineer for Dr. Sherman. He recommends CT scan for further evaluation. The patient will likely need to be admitted for continued evaluation and observation. 22:[address] Moreno, radiologist. CT negative for evidence of perforation or diverticulitis. Hgb/Hct 15.7/45.3. Blood pressure 109/81 with repeat 93/72. No tachycardia, shortness of breath, chest pain, mild lightheadedness when upright. 22:52 Reassessed patient. She has had another bowel movement. I observed bright red blood in the toilet. I discussed admission for continued observation. She is comfortable with this plan. 22:59 Spoke with hospitalist service. Dr. Maguire accepts admission for brbpr while anticoagulated. Likely colonoscopy in AM, assuming that she remains stable through the night. Differential Diagnosis: DDX includes but is not limited to viscous perforation, diverticular bleeding, bleeding from polypectomy, hemorrhoids, anemia, coagulopathy. - Data Points Laboratory Results: Laboratory Results 09/05/17 11:57 09/05/17 04:04 Medications Given: Discontinued Medications Hydrocodone Bitart/Acetaminophen (Olean 5/325) 1 - 2 tab PO Q4HRS PRN PRN Reason: Pain, Moderate Able to Take PO Stop: 09/14/17 23:14 Last Admin: 09/07/17 07:55 Dose: 1 tab Atorvastatin Calcium (Lipitor) 20 mg PO DAILY@12 [facility] Stop: 03/05/18 11:59 Last Admin: 09/07/17 11:47 Dose: 20 mg Calcium Carbonate (Oyster Shell Calcium) 500 mg PO DAILY@12 [facility] Stop: 03/05/18 11:59 Last Admin: 09/07/17 11:47 Dose: 500 mg Enoxaparin Sodium (Lovenox) 120 mg SC BID [facility] Stop: 03/05/18 10:14 Last Admin: 09/07/17 08:29 Dose: 120 mg Epinephrine HCl (Epinephrine) Confirm Administered Dose 1 mg .ROUTE .STK-MED ONE Stop: 09/05/17 17:24 Last Admin: 09/05/17 17:40 Dose: 1 mg Fentanyl (Sublimaze) 50 mcg IVP EDNOW ONE Stop: 09/04/17 21:48 Last Admin: 09/04/17 21:54 Dose: 50 mcg Hydromorphone HCl (Dilaudid) 1 mg IVP EDNOW ONE Stop: 09/04/17 23:35 Last Admin: 09/04/17 23:40 Dose: 1 mg Sodium Chloride (Ns) 1,000 mls @ 0 mls/hr IV EDNOW ONE; Wide Open PRN Reason: Protocol Stop: 09/04/17 21:17 Last Admin: 09/04/17 21:53 Dose: 1,000 mls Sodium Chloride (Ns) 1,000 mls @ 100 mls/hr IV CONT [facility] Stop: 03/03/18 23:14 Last Admin: 09/05/17 00:52 Dose: 1,000 mls Influenza Virus Vaccine Quadrival (Fluarix Quad [id number]) 0.5 ml IM .ONCE ONE Stop: 09/05/17 11:28 Last Admin: 09/05/17 13:53 Dose: 0.5 ml [id number] Ethyl Esters (Fish Oil) 3,000 mg PO DAILY@12 [facility] Stop: 03/05/18 11:59 Last Admin: 09/07/17 11:47 Dose: 3,000 mg Ondansetron HCl (Zofran) 4 mg IVP EDNOW ONE Stop: 09/04/17 21:48 Last Admin: 09/04/17 21:54 Dose: 4 mg Pneumococcal Polyvalent Vaccine (Pneumovax 23) 0.5 ml IM .ONCE ONE Stop: 09/05/17 14:01 Last Admin: 09/05/17 13:52 Dose: 0.5 ml Polyethylene Glycol/Electrolytes (Gavilyte - G) 4,000 ml PO ONCE ONE Stop: 09/05/17 09:55 Last Admin: 09/05/17 10:12 Dose: 4,000 ml Polyethylene Glycol/Electrolytes (Gavilyte - G) 4,000 ml PO ONCE ONE Stop: 09/05/17 10:01 Last Admin: 09/05/17 10:12 Dose: Not Given Warfarin Sodium (Coumadin) 3 mg PO ONCE ONE Stop: 09/06/17 10:41 Last Admin: 09/06/17 12:00 Dose: 3 mg Warfarin Sodium (Coumadin) 7.5 mg PO HS [facility] Stop: 03/05/18 20:59 Last Admin: 09/06/17 20:25 Dose: 7.5 mg Departure - Departure Disposition: [facility] In[facility] Acute Clinical Impression: BRBPR (bright red blood per rectum), Anticoagulated Condition: Fair Report Scribed for: Laurel Gaona Report Scribed by: Maria Victoria Hess Date of Report: 09/04/17 Time of Report: 21:05 Physician Review and Approval Statement: 09/04/17 21:03 Portions of this note were transcribed by the medical delivery technician. I, Dr. Laurel Gaona, personally performed the history, physical exam, and medical decision- making; and confirmed the accuracy of the information in the transcribed note.
[2017-09-04] MEDS ORDERED: NS 1,000 ML IV ONE (21:16)
[2017-09-04 21:29] LABS: % IMMATURE GRANULYOCYTES 0.1 % (0.0-1.1); ABSOLUTE IMMATURE GRANULOCYTES 0.01 10^3/uL (0.00-0.10); ADD DIFF? NO; ADD MORPH? NO; ADD SCAN? NO; ATYPICAL LYMPHOCYTE FLAG 10 (0-99); FRAGMENT RBC FLAG 0 (0-99); HEMATOCRIT 45.3 % (38.0-47.0); HEMOGLOBIN 15.7 g/dL (12.6-16.3); LEFT SHIFT FLG 0 (0-99); LIPEMIA HEMOLYSIS FLAG 90 (0-99); MEAN CELL HEMOGLOBIN 31.6 pg (27.9-34.1); MEAN CELL HEMOGLOBIN CONCENTR. 34.7 g/dL (32.4-36.7); MEAN CELL VOLUME 91.1 fL (81.5-99.8); MEAN PLATELET VOLUME 10.2 fL (8.7-11.7); PLATELET CLUMPS FLAG 10 (0-99); PLATELET COUNT 218 10^3/uL (150-400); RED BLOOD CELL COUNT 4.97 10^6/uL (4.18-5.33); RED CELL DISTRIBUTION WIDTH 12.9 % (11.5-15.2)
[2017-09-04 21:38] LABS: INR 1.12 (0.83-1.16); PROTIME(PATIENT) 14.3 SEC (12.0-15.0)
[2017-09-04 21:41] LABS: ANION GAP 14 mEq/L (8-16); CARBON DIOXIDE 21 mEq/l (22-31); CHLORIDE 102 mEq/L (97-110); CREATININE 0.8 mg/dL (0.6-1.0); GLOMERULAR FILTRATION RATE > 60; GLUCOSE 134 mg/dL (70-100); POTASSIUM 3.9 mEq/L (3.5-5.2); SODIUM 137 mEq/L (134-144)
[2017-09-04] MEDS ORDERED: fentaNYL 100 MCG/2 ML INJ IVP ONE (21:47)
[2017-09-04] MEDS ORDERED: ONDANSETRON 4 MG/2 ML VIAL IVP ONE (21:47)
[2017-09-04] MEDS ORDERED: ACETAMINOPHEN 325 MG TAB PO PRN (23:15)
[2017-09-04] MEDS ORDERED: ONDANSETRON DISINTEGRATING 4 MG TAB PO PRN (23:15)
[2017-09-04] MEDS ORDERED: NS 1,000 ML IV SCH (23:15)
[2017-09-04] MEDS ORDERED: diphenhydrAMINE 25 MG CAP PO PRN (23:15)
[2017-09-04] MEDS ORDERED: ONDANSETRON 4 MG/2 ML VIAL IVP PRN (23:15)
[2017-09-04] MEDS ORDERED: LORazepam 2 MG/ML INJ IVP PRN (23:15)
[2017-09-04] MEDS ORDERED: HYDROmorphONE/DILAUDID 1 MG/ML INJ IVP ONE (23:34)
[2017-09-05] MEDS: HYDROCODONE/APAP 5/325 TAB PO PRN ×4 (00:51→22:33)
--- NOTE | 2017-09-05 04:15 | GHP ---
[f rep st] HISTORY AND PHYSICAL DATE OF ADMISSION: 09/04/2017 SOURCE: Patient provides history, appears reliable. Her electronic medical record was also reviewed . CHIEF COMPLAINT: Rectal bleeding. HISTORY OF PRESENT ILLNESS: This is a very pleasant 57-year-old female with past medical history sig nificant for diverticulitis, obesity, hyperlipidemia, history of mitral valve repair on chronic antic oagulation and recent colonoscopy with a polypectomy on 09/03/2017, who presents to the emergency dep artment today with complaints of several hours of multiple bowel movements with several clots. Patie nt also complaining of diffuse abdominal pain and cramping with more increased focus in the left lowe r quadrant. The patient did undergo a colonoscopy on Friday. She is normally on chronic Coumadin therapy for her mitral valve replacement. She did hold her Coumadin on 08/30/2017 prior to procedur e and transitioned to Lovenox injections therapeutic dosing twice daily. Patient reports that she to ok her last injection of Lovenox on 09/04/2017 in the morning, has not had her evening dose. On following her procedure, patient did resume a dose of Coumadin at 7.5 mg. Following her colono scopy, the patient reports that she continued to have abdominal bloating and discomfort. Today, luisa ent reports that she passed multiple clots with multiple bowel movements. The patient denies any efng st pain, palpitations. She did endorse a little bit of lightheadedness without any syncope. The pat ient denies any dysuria, hematuria, or any other complaints of fevers or chills. REVIEW OF SYSTEMS: GENERAL: Patient denies any fevers chills. SKIN: No rashes, sores. ENT: No c ongestion, sore throat. EYES: No changes in vision or ocular pain. CV: No chest pain, palpitation s. RESPIRATORY: No shortness of breath or cough. GI: Some nausea, abdominal pain, and blood clots in stool as noted above in HPI. : No dysuria, hematuria. MUSCULOSKELETAL: Patient without comp laints of joint pain, myalgias. NEURO: Patient without headache or numbness tingling. Remainder of review of systems negative except as noted above. ALLERGIES: Indomethacin and yeast. MEDICATIONS: At home, Percocet 5/325 one tablet p.o. daily p.r.n., Coumadin 7.5 mg p.o. h.s., fish o il 1000 mg p.o. daily, herbal supplements, Lovenox 100 mg subcu b.i.d., Co Q10 one tablet p.o. daily, calcium carbonate 500 mg p.o. daily, atorvastatin 20 mg p.o. daily. PAST MEDICAL HISTORY: Significant for mitral valve replacement on chronic anticoagulation, colonic p olyp, diverticulitis, hyperglycemia, obesity with BMI 39.8, hyperlipidemia, SERGIO on CPAP. PAST SURGICAL HISTORY: Significant for colonoscopy, mitral valve replacement, and a hysterectomy. FAMILY HISTORY: Significant for colorectal cancer in the paternal grandmother and older sister. No history of CAD. SOCIAL HISTORY: Patient quit smoking in 1999. She has occasional alcohol intake. No illicit drugs. CODE STATUS: Full. Patient desires her sister Yin Cooper to act as proxy if needed. She does n ot have an advanced directive. PHYSICAL EXAMINATION: VITAL SIGNS: Upon arrival to the ER, blood pressure 109/81, heart rate 87, re spiratory rate 16, O2 saturation 97% on room air, temperature 36.6. Current vitals: Blood pressure 105/61, heart rate 74, respiratory rate 14, O2 saturation 98% on CPAP, temperature is 36.9. GENERAL: No acute distress. Pleasant, morbidly obese female, is lying comfortably in bed asleep. She wakes easily to name. HEAD: Normocephalic, atraumatic. EYES: Limited exam as patient declines to have the bright overhead lights turned on. No drainage appreciated. ENT: Mucous membrane exam limited s econdary to CPAP being in place. No nasal discharge is noted. NECK: Trachea midline. CV: Regular rate and rhythm. Slightly distant heart sounds secondary to body habitus. No murmurs, rubs, or gal lops appreciated. RESPIRATORY: Lungs are clear to auscultation bilaterally. No wheezes, rales, or rhonchi. Unlabored breathing. ABDOMEN: Obese, soft, mild tenderness to palpation left lower quadra nt without any rebound, guarding, or masses appreciated. : No suprapubic tenderness to palpation. No Mera in place. EXTREMITIES: Patient without any pitting edema bilateral lower extremities. P atient with 1+ pedal pulses. NEURO: Grossly nonfocal. Moves all extremities. Awake, alert, and or iented x3. PSYCH: Patient thought process, content, and questions are appropriate. LABORATORY DATA: Sodium 137, potassium 3.9, chloride 102, CO2 21, anion gap 14, BUN 14, creatinine 0 .8, GFR greater than 60, glucose 134, calcium is 10.1. PT is 14.3, INR is 1.12. WBCs 8.12, H and H 15.7, 45.3, MCV 91.1, platelet count 218. No bands. CT abdomen and pelvis report reviewed and limited CT imaging that is available to me was also reviewe d. This is without contrast. Small nonspecific lesion in the posterior lobe of the liver, which is otherwise normal in size and homogeneous. No biliary obstruction. Gallbladder and pancreas looks no rmal. Spleen, adrenal glands, and kidneys are normal. No hydronephrosis or or ureterolit hiasis. Cecum is on the mesentery. There is normal appendix. No evidence of cecal volvu dez. No evidence of large or small bowel obstruction. No free air or free fluid. Small amount of s ubcutaneous gas in the right and left anterior abdominal subcutaneous fat consistent with Lovenox inj ections. Atherosclerotic calcifications. Normal size abdominal aorta. The patient has had a mitral valve replacement. Heart size is normal without pericardial fluid. Lung is normal witho ut pleural fluid. Minimal diverticulosis of the descending colon without CT evidence of diverticulit is. ASSESSMENT AND PLAN: A very pleasant 57-year-old female, who presents with complaints of rectal blee ding. 1. Gastrointestinal bleeding, suspect some oozing from patient's biopsy sites from Friday's colon oscopy. There is no evidence of diverticulitis or colitis. The patient did receive her last Lovenox injection on morning and received a dose of evening Coumadin on Friday following colonos copy. Patient's hemoglobin and hematocrit at this time are stable. Vitals also stable, although she has some low normal blood pressures. Will continue to monitor. Patient denies any symptoms of dizz iness, lightheadedness. Case was discussed from the emergency department by on-call Gastroenterology . As patient has undergone colonoscopy with Dr. Sherman, will further discuss with him. I did review with the patient consideration for a bowel prep in anticipation that a repeat colonoscopy might be n eeded. However, patient has elected to wait for further recommendations from Dr. Sherman. Will plan to repeat a CBC in the morning and monitor her hemoglobin and hematocrit. The patient states that hedy ingram has not had any further bowel movements since arriving to the medical floor. She did have 1 episod e in the emergency room with passage similarly of clots in her stool. Abdominal pain has also improv ed. 2. Abdominal pain. P.r.n. [place], morphine if needed. Patient reports symptoms have improved. Luisa ent's symptoms currently have improved. She feels like the abdominal distention has decreased. Will continue to monitor and further plans as noted above. 3. Chronic anticoagulation. Holding the patient's Lovenox at this time. Her INR is subtherapeutic, but long-term patient does require anticoagulation for her history of prosthetic valve with goal of INR of 2.5-3.5. 4. Diverticulosis. No evidence of diverticulitis on CT. No antibiotics at this time. 5. Hyperglycemia. Dietary management. If patient's blood sugar should continue to rise, we will an ticipate need for p.r.n. insulin if patient will be agreeable. 6. History of mitral valve replacement artificial, anticoagulation. Plans as noted above. 7. Obesity with body mass index of 39.8. 8. Hyperlipidemia. Resume statin when patient's diet is advanced. 9. Dosing on continuous positive airway pressure. Continue patient's home continuous positive airwa y pressure. 10. Fluid, electrolyte, nutrition. IV fluids overnight at 100 normal saline for supportive care. P atient will be made n.p.o. after midnight. Electrolyte replacement p.r.n. 11. Prophylaxis sequential compression devices only holding anticoagulation in setting of gastrointe stinal bleeding. 12. Code status is full. Patient without advance directives. Desires sister Yin Cooper to act as proxy if needed. DISPOSITION: Patient will be admitted to observation on the medical floor pending further recommenda tions from GI. /[id number]/MODL
[2017-09-05 05:22] LABS: % IMMATURE GRANULYOCYTES 0.3 % (0.0-1.1); ABSOLUTE IMMATURE GRANULOCYTES 0.02 10^3/uL (0.00-0.10); ADD DIFF? NO; ADD MORPH? NO; ADD SCAN? NO; ATYPICAL LYMPHOCYTE FLAG 0 (0-99); FRAGMENT RBC FLAG 0 (0-99); HEMATOCRIT 37.7 % (38.0-47.0); HEMOGLOBIN 12.5 g/dL (12.6-16.3); LEFT SHIFT FLG 0 (0-99); LIPEMIA HEMOLYSIS FLAG 80 (0-99); MEAN CELL HEMOGLOBIN 31.2 pg (27.9-34.1); MEAN CELL HEMOGLOBIN CONCENTR. 33.2 g/dL (32.4-36.7); MEAN PLATELET VOLUME 10.3 fL (8.7-11.7); PLATELET CLUMPS FLAG 0 (0-99); PLATELET COUNT 173 10^3/uL (150-400); RED BLOOD CELL COUNT 4.01 10^6/uL (4.18-5.33); RED CELL DISTRIBUTION WIDTH 12.9 % (11.5-15.2)
[2017-09-05 05:33] LABS: INR 1.25 (0.83-1.16); PROTIME(PATIENT) 15.7 SEC (12.0-15.0)
[2017-09-05 05:34] LABS: ALANINE AMINOTRANSFERASE 45 IU/L (9-52); ALKALINE PHOSPHATASE 49 IU/L (38-126); ANION GAP 9 mEq/L (8-16); APTT 33.3 SEC (23.0-38.0); ASPARTATE AMINOTRANSFERASE 36 IU/L (14-46); BILIRUBIN,TOTAL 0.5 mg/dL (0.1-1.4); CALCIUM 8.6 mg/dL (8.5-10.4); CARBON DIOXIDE 26 mEq/l (22-31); CHLORIDE 107 mEq/L (97-110); CREATININE 0.8 mg/dL (0.6-1.0); GLOMERULAR FILTRATION RATE > 60; GLUCOSE 101 mg/dL (70-100); POTASSIUM 4.4 mEq/L (3.5-5.2); SODIUM 142 mEq/L (134-144); TOTAL PROTEIN 5.1 g/dL (6.3-8.2)
[2017-09-05] MEDS ORDERED: PEG 3350/NA SULF,BICARB,CL/KCL (GAVILYTE-G) 4000 ML BTL PO ONE ×2 (09:54→10:00)
--- NOTE | 2017-09-05 11:04 | ASMTCMCOM ---
CM Note CM Note Notes: D/W RN. Anticipate dc home independatly when medically stable. CM will follow for changes/needs. Date Signed: 09/05/2017 11:03 AM Electronically Signed By:Carrie Spear RN
[2017-09-05] MEDS ORDERED: FLU VACC QS 2017-18 (3YR+)/PF 0.5 ML SYR (FLUARIX QUAD) IM ONE ×2 (11:27→13:49)
[2017-09-05] MEDS ORDERED: PNEUMOCOCCAL 0.5ML VACCINE VIAL IM ONE ×2 (11:27→14:00)
[2017-09-05 12:14] LABS: HEMATOCRIT 37.8 % (38.0-47.0); HEMOGLOBIN 12.7 g/dL (12.6-16.3)
--- NOTE | 2017-09-05 13:47 | HOSPPROG ---
Hospitalist Progress Note Assessment/Plan: # Acute LGIB presumed 2/2 recent polypectomy - pt on anticoagulation for MVR - Hgb 15-> 12 overnight Patient with persistent bleeding this am - however improved abdominal discomfort CT abd (personally reviewed and interpreted) no evidence of diverticulitis or perforation - NPO - continue to hold anticoagulation - begin Golytely prep for colonoscopy later today with Dr. Sherman # Anemia secondary to acute blood loss- will recheck H&H this afternoon- INR 1.2 Oxygen saturations 94% on room air - plan for colonoscopy as above - continue to hold anticoagulation # mitral valve replacement- patient was bridged on heparin for her colonoscopy on 09/03/2017 - holding anticoagulation in the setting of acute GI bleed - will resume when safe per gastroenterology # morbid obesity- BMI 40 # HLD- holding home meds # SERGIO - cont CPAP # proph -contraindicated in the setting of acute GI bleed # diet-NPO # disposition-greater than 2 midnights as the patient requires colonoscopy and ongoing monitoring for acute GI bleed I have discussed case with Dr. Sherman- we will prep the patient this morning for anticipated colonoscopy this afternoon Subjective: Abdominal pain improved still passing large blood clots this morning Objective: Vital Signs Temp Pulse Resp BP Pulse Ox 36.9 C 68 17 92/61 L 94 09/05/17 08:00 09/05/17 08:00 09/05/17 08:00 09/05/17 08:00 09/05/17 08:00 Laboratory Results 09/05/17 11:57 09/05/17 04:04 09/04/17 09/05/17 09/06/17 05:59 05:59 05:59 Intake Total 1750 Balance 1750 PT 15.7 SEC (12.0-15.0) H 09/05/17 04:04 INR 1.25 (0.83-1.16) H 09/05/17 04:04 - Physical Exam Constitutional: obese Eyes: anicteric sclera Ears, Nose, Mouth, Throat: dry mucous membranes Cardiovascular: regular rate and rhythym Respiratory: no respiratory distress Gastrointestinal: normoactive bowel sounds, tenderness, No guarding, No rebound Genitourinary: no bladder fullness Skin: normal color Musculoskeletal: No asymmetric calves Neurologic: AAOx3 Psychiatric: interacting appropriately Lymph, Heme, Immunologic: no cervical LAD ICD10 Worksheet Patient Problems: Problems Problem Status Onset Anticoagulated Acute BRBPR (bright red blood per rectum) Acute Chest pain Acute History of mitral valve repair Acute Subtherapeutic international normalized ratio (INR) Acute
--- NOTE | 2017-09-05 16:38 | PDMN ---
Medical Necessity Medical necessity: change to IP, for acute LGIB s/p polypectomy, on AC, acute blood loss anemia; requires repeat colonoscopy & monitoring; hx MVR, on AC; per progress note & order 09/05/17
--- NOTE | 2017-09-05 16:50 | PDANEPAE ---
ANE History of Present Illness colonoscopy ANE Past Medical History - Cardiovascular History Hx Hypertension: No Hx Arrhythmias: No Hx Chest Pain: No Hx Coronary Artery / Peripheral Vascular Disease: No Hx CHF / Valvular Disease: No Hx Palpitations: No Cardiovascular History Comment: Mitral valve disorder- repair ;. BP : 110/70 ;on Lipitor - Pulmonary History Hx COPD: No Hx Asthma/Reactive Airway Disease: No Hx Recent Upper Respiratory Infection: No Hx Oxygen in Use at Home: No Hx Sleep Apnea: Yes Sleep Apnea Screening Result - Last Documented: Positive Pulmonary History Comment: SERGIO- USES CPAP - Neurologic History Hx Cerebrovascular Accident: No Hx Seizures: No Hx Dementia: No - Endocrine History Hx Diabetes: No - Renal History Hx Renal Disorders: No - Liver History Hx Hepatic Disorders: No - Neurological & Psychiatric Hx Hx Neurological and Psychiatric Disorders: Yes Neurological / Psychiatric History Comment: L5/S1 bulging disc- RAFAELA - Cancer History Hx Cancer: No - Congenital Disorder History Hx Congenital Disorders: No - GI History GERD: no Hx Gastrointestinal Disorders: Yes Gastrointestinal History Comment: diverticulitis -placed on antiBx 05-03. - Chronic Pain History Chronic Pain: No - Surgical History Prior Surgeries: mitral valve -. hysterectomy 2002. laser procedure to remove birthmark on face-1982 ANE Review of Systems Review of Systems: - Exercise capacity METS (RN): 4 METS ANE Patient History - Allergies Allergies/Adverse Reactions: indomethacin [Indomethacin] Allergy (Intermediate, Verified 07/04/17 10:57) DIZZINESS yeast, dried Allergy (Unknown, Verified 07/04/17 10:57) Unknown - Home Medications Home Medications: Warfarin Sodium [Coumadin 5MG (*)] 7.5 mg PO HS 01/23/11 [Last Taken 09/03/17] Atorvastatin Calcium [Lipitor 20 mg (*)] 20 mg PO DAILY@12 02/13/17 [Last Taken 09/04/17] Herbals/Supplements -Info Only 1 ea PO DAILY 02/13/17 [Last Taken 02/12/17] [place]-3 Fatty Acids [Fish Oil 1000 mg (*)] 3,000 mg PO DAILY@02/13/17 [Last Taken 09/04/17] Calcium Carbonate [Oyster Shell Calcium 500 mg (*)] 500 mg PO DAILY@09/05/17 [Last Taken 09/04/17] Enoxaparin [Lovenox 120 MG (*)] 120 mg SQ BID 09/05/17 [Last Taken 09/04/17 09: 00] - NPO status NPO Since - Liquids (Date): 09/05/17 NPO Since - Liquids (Time): 14:00 NPO Since - Solids (Date): 09/04/17 NPO Since - Solids (Time): 10:00 - Smoking Hx Smoking Status: Former smoker ANE Labs/Vital Signs - Labs Result Diagrams: 09/05/17 11:57 09/05/17 04:04 - Vital Signs Blood Pressure: 92/61 Heart Rate: 68 Respiratory Rate: 17 O2 Sat (%): 94 Height: 162.5 cm Weight: 105.2 kg ANE Physical Exam - Airway Neck exam: FROM Mallampati Score: Class 1 - Pulmonary Pulmonary: clear to auscultation - Cardiovascular Cardiovascular: regular rate and rhythym - ASA Status ASA Status: III ANE Anesthesia Plan Anesthesia Plan: GA with mask
[2017-09-05] MEDS ORDERED: PROPOFOL 200 MG/20 ML VIAL ONE ×5 (16:53→17:29)
--- NOTE | 2017-09-05 17:48 | POSTOPPROG ---
Post Op Note Date of Operation: 09/05/17 Surgeon: William Sherman Anesthesia: IV Sedation Pre-op Diagnosis: Post polypectomy bleed Post-op Diagnosis: same Indication: same Procedure: Colonoscopy/BICAP cautery/Sclerotherapy/Endoclipping/tattooing Findings: Active bleed from transverse colon polypectomy site Inf/Abcess present in the surg proc area at time of surgery?: No EBL: Minimal
[2017-09-05] MEDS ORDERED: fentaNYL 100 MCG/2 ML INJ IVP PRN (17:56)
[2017-09-05] MEDS ORDERED: NALOXONE HCL 0.4 MG/ML INJ IVP PRN (17:56)
--- NOTE | 2017-09-05 17:58 | GIREPORT ---
Formerly [facility] Surgical Services - Endoscopy Department Patient Name: Krysta Diaz Procedure Date: 09/05/2017 3:27 PM Patient Type: Inpatient Attending MD/ ER Physician: William Sherman MD Procedure: Colonoscopy Indications: Treatment of bleeding from polypectomy site Providers: William Sherman MD Medicines: General Anesthesia Complications: No immediate complications. Description of Procedure: After obtaining informed consent, the scope was passed under direct vis ion. Throughout the procedure, the patient's blood pressure, pulse, and oxyg en saturations were monitored continuously. The Colonoscope was introduced through the anus and advanced to the cecum, identified by appendiceal orifice and ileocecal valve. The colonoscopy was performed without difficulty. The patient tolerated the procedure well. The quality of th e bowel preparation was excellent. Findings: Oozing blood was seen in the transverse colon, secondary to previous polypectomy procedure. Coagulation for hemostasis using bipolar probe w as successful. Area was successfully injected with 7 mL of a 1:10,000 solu tion of epinephrine for drug delivery. For hemostasis, three hemostatic clip s were successfully placed. There was no bleeding at the end of the proce dure. Area was tattooed with an injection of Tova ink. Estimated Blood Loss: Estimated blood loss was minimal. Post Op Diagnosis: - Bleeding in the transverse colon secondary to previous polypectomy. Treated with bipolar cautery. Injected. Clips were placed. Tattooed. - No specimens collected. Recommendation: - Return patient to hospital rey for observation. - Clear liquid diet. - Resume Coumadin (warfarin) and Lovenox (enoxaparin) at prior doses tomorrow. Attending Participation: I personally performed the entire procedure. William Sherman MD Wililam Sherman MD 09/05/2017 5:58:45 PM This report has been signed electronicallyRobert MD Whit Number of Addenda: 0 Note Initiated On: 09/05/2017 3:27 PM Total Procedure Duration Time 0 hours 40 minutes 53 seconds [email or web address]
[2017-09-06 04:41] LABS: HEMATOCRIT 31.4 % (38.0-47.0); HEMOGLOBIN 10.1 g/dL (12.6-16.3); MEAN CELL HEMOGLOBIN 30.5 pg (27.9-34.1); MEAN CELL HEMOGLOBIN CONCENTR. 32.2 g/dL (32.4-36.7); MEAN CELL VOLUME 94.9 fL (81.5-99.8); RED BLOOD CELL COUNT 3.31 10^6/uL (4.18-5.33); RED CELL DISTRIBUTION WIDTH 12.8 % (11.5-15.2)
[2017-09-06 04:58] LABS: INR 1.35 (0.83-1.16); PROTIME(PATIENT) 16.7 SEC (12.0-15.0)
[2017-09-06] MEDS ORDERED: OXYCODONE/APAP 5/325 TAB PO PRN (08:34)
[2017-09-06] MEDS ORDERED: Herbals/Supplements -Info Only PO SCH (09:00)
--- NOTE | 2017-09-06 09:03 | POSTANESTH ---
Post Anesthetic Evaluation Cardiovascular Status: Similar to Pre-Op Cond Respiratory Status: Similar to Pre-op Cond. Level of Consciousness/Mental Status: Can Participate in Eval Pain Control: Adequate, Prn Tx Ordered Nausea/Vomiting Control: Adequate, Prn Tx Ordered Complications Possibly Related to Anesthesia: None Noted
[2017-09-06] MEDS: HYDROCODONE/APAP 5/325 TAB PO PRN ×3 (09:04→20:32)
[2017-09-06] MEDS ORDERED: WARFARIN SODIUM 3 MG TAB PO ONE (10:40)
[2017-09-06] MEDS: OMEGA-3 FATTY ACIDS 1,000 MG CAP PO SCH (12:00)
[2017-09-06] MEDS: CALCIUM CARBONATE 500 MG TAB PO SCH (12:00)
[2017-09-06] MEDS: ENOXAPARIN 120 MG/0.8 ML SYR SC SCH ×2 (12:01→20:25)
[2017-09-06] MEDS: ATORVASTATIN CALCIUM 20 MG TAB PO SCH (13:44)
[2017-09-06 14:48] LABS: HEMATOCRIT 31.7 % (38.0-47.0); HEMOGLOBIN 10.9 g/dL (12.6-16.3)
[2017-09-06 15:47] LABS: % SATURATION 17 % (20-55); TOTAL IRON BINDING CAPACITY 285 ug/dL (260-490)
[2017-09-06 16:52] VITALS: RESP 16
--- NOTE | 2017-09-06 17:19 | HOSPPROG ---
Hospitalist Progress Note Assessment/Plan: Assessment: 57-year-old female presents with acute lower GI bleed with resultant acute blood loss anemia Plan: # Acute LGIB. presumed 2/2 recent polypectomy w/ bleeding source in the transverse colon on 09/05 colonoscopy - d/w Dr. Sherman, he reports clip and cautery to the source - ongoing small bleeding is concerning, particularly since we must restart her anticoagulation - will advance diet, start lovenox bridge now and monitor BMs, Hgb # Acute blood loss anemia. New problem to this provider, further w/u indicated. 2/2 above, resulting in decline from 15->10, reported small blood in stool - repeat Hgb/Iron studies this PM - if deficient, will give IV iron - repeat Hgb in AM # Mechanical Mitral valve replacement. Cautiously restart lovenox bridge today w / 3mg coumadin now, then resume home dosing of 7.5mg HS - repeat INR in AM, will have f/u INR through PCP/[facility] - if begins profusely bleeding or hypotensive, stop lovenox, get stat Hgb # Morbid obesity- BMI 40, increases risk morbidity # SERGIO - cont CPAP Diet. Advance Reg PPx. Starting lovenox Code. Full Dispo. ADD 09/06 if above stabilized Subjective: reports small amt of blood from rectum, no actual BMs Objective: Vital Signs Temp Pulse Resp BP Pulse Ox 37.2 C 80 16 74/44 L 90 L 09/06/17 16:00 09/06/17 16:00 09/06/17 16:00 09/06/17 16:00 09/06/17 16:00 Laboratory Results 09/06/17 14:39 09/05/17 09/06/17 09/07/17 05:59 05:59 05:59 Intake Total 890 500 Balance 890 500 PT 16.7 SEC (12.0-15.0) H 09/06/17 04:02 INR 1.35 (0.83-1.16) H 09/06/17 04:02 - Physical Exam Constitutional: no apparent distress, not in pain, obese, No uncomfortable Cardiovascular: regular rate and rhythym, no murmur, rub, or gallop, No edema Respiratory: no respiratory distress, no rales or rhonchi, clear to auscultation Gastrointestinal: normoactive bowel sounds, tenderness (mild in LUQ/LLQ), No guarding, No distension Neurologic: AAOx3, sensation intact bilaterally, No weakness Psychiatric: interacting appropriately, not encephalopathic, thought process linear, anxious, No agitated ICD10 Worksheet Patient Problems: Problems Problem Status Onset Subtherapeutic international normalized ratio (INR) Acute History of mitral valve repair Acute Chest pain Acute BRBPR (bright red blood per rectum) Acute Anticoagulated Acute
[2017-09-06] MEDS ORDERED: WARFARIN SODIUM 5 MG TAB PO SCH (21:00)
[2017-09-06] MEDS ORDERED: WARFARIN SODIUM 7.5 MG TAB PO SCH (21:00)
[2017-09-07 05:40] LABS: HEMATOCRIT 33.3 % (38.0-47.0); HEMOGLOBIN 10.7 g/dL (12.6-16.3)
[2017-09-07 05:53] LABS: INR 1.32 (0.83-1.16); PROTIME(PATIENT) 16.4 SEC (12.0-15.0)
[2017-09-07 05:54] LABS: ANION GAP 8 mEq/L (8-16); CALCIUM 8.9 mg/dL (8.5-10.4); CARBON DIOXIDE 31 mEq/l (22-31); CHLORIDE 103 mEq/L (97-110); CREATININE 0.7 mg/dL (0.6-1.0); GLOMERULAR FILTRATION RATE > 60; GLUCOSE 92 mg/dL (70-100); POTASSIUM 4.2 mEq/L (3.5-5.2); SODIUM 142 mEq/L (134-144)
[2017-09-07 07:18] VITALS: BP 91/54; PULSE 78; O2SAT 91
[2017-09-07] MEDS: HYDROCODONE/APAP 5/325 TAB PO PRN (07:55)
[2017-09-07 08:19] VITALS: TEMP 98.1
[2017-09-07] MEDS: ENOXAPARIN 120 MG/0.8 ML SYR SC SCH (08:29)
[2017-09-07] MEDS: ATORVASTATIN CALCIUM 20 MG TAB PO SCH (11:47)
[2017-09-07] MEDS: CALCIUM CARBONATE 500 MG TAB PO SCH (11:47)
[2017-09-07] MEDS: OMEGA-3 FATTY ACIDS 1,000 MG CAP PO SCH (11:47)
--- NOTE | 2017-09-07 13:40 | PDDCSUM ---
Discharge Summary Discharge Summary: DISCHARGE SUMMARY FOLLOW-UP ITEMS: Outpatient CBC and PT/INR DATE OF ADMISSION: 09/04/2017 DATE OF DISCHARGE: 09/07/2017 DISCHARGE DIAGNOSES: 1. Acute lower GI bleed 2. Acute blood loss anemia 3. Mechanical mitral valve replacement 4. Morbid obesity with BMI 40 5. Diverticulosis CONSULTATIONS: Gastroenterology by Dr. Ding PROCEDURES / IMAGING: Colonoscopy demonstrating transverse bleeding polyp, status post clip and cautery CHIEF COMPLAINT: Acute hematochezia SUBJECTIVE: Patient is feeling well at time discharge, she has been having brown bowel movements with only small scarce blood spots, abdominal pain is well controlled , tolerating diet PHYSICAL EXAM ON DISCHARGE: Systolic blood pressure 100, heart rate 80, satting well on room air, afebrile overnight, alert awake oriented x3, abdomen is soft, very mildly tender in the left lower quadrant without any rebound or guarding, bowel sounds are present LABS ON DISCHARGE: INR 1.32, hemoglobin 10.7 HOSPITAL COURSE BY PROBLEM: The patient presented with acute lower gastrointestinal hemorrhage resulting in acute blood loss anemia, secondary to recent polypectomy, with the bleeding source identified in the transverse colon on 09/[address] Eduardo Sherman performed clipping and cautery to control bleeding at the source. He did not note any bleeding diverticulitis. Patient's hemoglobin level started around 15 down trended 10, but did not require additional transfusion. Iron studies were performed which demonstrated a normal iron level, normal TIBC, slightly less saturation, IV iron therapy was not indicated. Dr. Sherman and I discussed the case, and he recommended initiating systemic anticoagulation in a monitored setting, with the patient beginning her Lovenox bridge on 09/06, and demonstrating no further reduction in her hemoglobin level after restarting blood thinners. She will continue on this Lovenox bridge to Coumadin and have a repeat PT and INR this coming . She will have outpatient INR monitoring through her regular primary care source. She also have a CBC performed at that time to ensure no worsening anemia, and no leukocytosis which could be indicative of active diverticulitis. The patient had many questions about dietary management for diverticulitis, and I recommended that she continue working on the dietary techniques that she is currently pursuing, and follow up with her primary silver recovery operator. We also discussed abdominal pain management strategies, and is not entirely clear to me whether the patient' s pain that she is experiencing is referred pain from her polypectomy site versus symptomatic diverticulosis versus more of an irritable bowel pathology. I recommended that the patient utilize Bentyl as needed for first-line pain management, and only rely on [place] if absolutely necessary. DISCHARGE MEDICATIONS: Please see official discharge medication reconciliation sheet in chart , continue home medications with Lovenox bridge and Coumadin, Bentyl as needed, [place] as needed. DISCHARGE INSTRUCTIONS: Please have outpatient labs this week, follow up with primary care provider practice, follow-up Dr. Eduardo Sherman thereafter. TIME SPENT: Greater than 30 minutes were spent on direct patient care, as well as discharge planning and preparation.
--- NOTE | 2017-09-07 15:58 | ASDISCHSUM ---
Discharge Information Plan Status:Home with No Needs Medically Cleared to Leave:09/07/2017 Discharge Date:09/07/2017 12:55 PM CM D/C Disposition:Home, Routine, Self-Care ADT D/C Disposition:Home, Routine, Self-Care Projected Discharge Date:09/07/2017 12:55 PM Transportation at D/C:Family Discharge Delay Reason: Follow-Up Date:09/07/2017 12:55 PM Discharge Slot: Final Diagnosis: Placement Information Patient Contact Information Contact Name:ABDI Relationship:Sister Address: Work Phone: City: [facility] Phone: [facility]/Zip Code: Email: Financial Information Financial Class: Primary Plan Desc:[employer] Primary Plan Number:[id number] Secondary Plan Desc: Secondary Plan Number: Assessment Information [facility] CM Progress Note CM Note CM Note Notes: D/W RN. Anticipate dc home independatly when medically stable. CM will follow for changes/needs. Date Signed: 09/05/2017 11:03 AM Electronically Signed By:Carrie Spear RN Intervention Information
== END 2017-09-07 12:55 | disposition home or self-care (01) | DRG 920 ==
LOC: F2W 09-05 00:19 → OBSVTOIN 09-05 16:13
PROVIDERS: ADMIT Family Medicine; ATTEND Internal Medicine
PROC: 3E0337Z Introduction of Electrolytic and Water Balance Substance into Peripheral Vein, Percutaneous Approach (ICD-10-PCS; 2017-09-05)
PROC: 0D5L8ZZ Destruction of Transverse Colon, Via Natural or Artificial Opening Endoscopic (ICD-10-PCS; principal; 2017-09-05 16:00)
PROC: 3E0H8GC Introduction of Other Therapeutic Substance into Lower GI, Via Natural or Artificial Opening Endoscopic (ICD-10-PCS; principal; 2017-09-05 16:00)
DX: K91.840 Postprocedural hemorrhage of a digestive system organ or structure following a digestive system procedure (principal); D62 Acute posthemorrhagic anemia; E86.9 Volume depletion, unspecified; R10.32 Left lower quadrant pain; E66.01 Morbid (severe) obesity due to excess calories; Z68.41 Body mass index [BMI] 40.0-44.9, adult; K57.30 Diverticulosis of large intestine without perforation or abscess without bleeding; R73.03 Prediabetes; E78.5 Hyperlipidemia, unspecified; G47.33 Obstructive sleep apnea (adult) (pediatric); Z79.01 Long term (current) use of anticoagulants; Z87.19 Personal history of other diseases of the digestive system; Z87.891 Personal history of nicotine dependence; Z86.010 Personal history of colon polyps; Z95.2 Presence of prosthetic heart valve; Z90.710 Acquired absence of both cervix and uterus; Z23 Encounter for immunization
CPT/HCPCS: 96374; G0008; G0009; G0378; J0171; J1170; J1650; J2405; J2704; J3010

== ENCOUNTER 2017-12-17 10:01 | Emergency (ER) | payer MEDICAID ==
[2017-12-17 10:15] VITALS: TEMP 98.2
[2017-12-17] MEDS ORDERED: ONDANSETRON 4 MG/2 ML VIAL IVP ONE (10:25)
[2017-12-17] MEDS ORDERED: HYDROmorphONE/DILAUDID 1 MG/ML INJ IVP ONE ×2 (10:25→12:28)
[2017-12-17] MEDS ORDERED: NS 1,000 ML IV ONE (10:25)
--- NOTE | 2017-12-17 10:25 | EDPHY ---
H & P Stated Complaint: l lower abd pain/hx diverticulitis/also seen [facility] 1 wk ago for dizzyness Time Seen by Provider: 12/17/17 10:23 HPI/ROS: HPI: This is a 57-year-old female who presents with Chief Complaint: l lower abd pain/hx diverticulitis/also seen [facility] 1 wk ago for dizziness Location: Lower quadrant Quality: Pain Duration: 1 week Signs and Symptoms: no fever, + nausea, no vomiting, no hematemesis, + blood in stool 2-3 days ago but none since no abdominal bloating, no diarrhea, no back pain, no urinary symptoms, no testicular/groin pain, no indigestion, no chest pain, no shortness of breath, + fatigue, + dizziness Timing: Daily Severity: [id number] Context: Patient has a history of diverticulitis, mitral valve disorder status post Willie placement in August of 2017 on Coumadin with INR on Friday last week 3.6, presents with multiple complaints today but the most prominent are 1 week history of left lower quadrant pain that is moderate in nature nonradiating. Denies nausea, vomiting. 3 days ago she had an episode where she noted blood in the stool but none since. Colonoscopy August 2017 for lower GI bleeding that required ablation. Patient also reports a last month she has been feeling dizzy with generalized fatigue and "not feeling right." Patient went to [facility] 1 week ago for the dizziness; laboratory findings and include normal range of troponin. She reports that she feels some "funniness" in her chest over the last 2 weeks; denies presently. Patient admits to increased stress. Received influenza vaccination this year. Denies fever/cough /swollen glands/sore throat/neck stiffness/ear pain. Denies that the room is actually spent. Reports that the dizziness comes and goes and does not last very long. Has small hard bowel movements daily. Denies hemorrhoids. Modifying Factors: Taking her regular medications Comment: ROS: see HPI Constitutional: No fever, no chills, no weight loss Eyes: No blurred vision Respiratory: No shortness of breath, no cough Cardiovascular: No chest pain, no palpitations Gastrointestinal: No nausea, no vomiting, no diarrhea, no hematemesis, no blood in stool Genitourinary: No dysuria, no blood in urine Extremities: No myalgias, no edema Neurologic: No weakness, no numbness Skin: No rashes, no petechiae Hematologic: No bruising, no bleeding MEDICAL/SURGICAL/SOCIAL HISTORY: PMHx: Mitral valve disorder, diverticulitis PSHx: 2002 hysterectomy; mvr 2009 Social history: Employed as business functional analyst. CONSTITUTIONAL: Extremely well-appearing obese adult white female, awake and alert, no obvious distress HEENT: Atraumatic and normocephalic, PERRL, EOMI. Tympanic membranes clear. Nares patent with no rhinorrhea. No sinus tenderness. Oropharynx clear, no exudate and moist pink mucosa. Airway patent. No lymphadenopathy. No meningismus. Cardiovascular: Normal S1/S2, regular rate, regular rhythm, with murmur. PULMONARY/CHEST: Symmetrical and nontender. Clear to auscultation bilaterally. Good air movement. No accessory muscle usage. ABDOMEN: Soft, obese leave round, nondistended, nontender, no rebound, no guarding, no peritoneal signs, no masses or organomegaly. No CVAT. EXTREMITIES: 2/2 pulses, strength 5/5, no deformities, no clubbing, no cyanosis or edema. NEUROLOGICAL: no focal neuro deficits. GCS 15. No reproduction of dizziness with [place]-Hallpike maneuver. No nystagmus. Normal cerebellar testing. SKIN: Warm and dry, no erythema. no rash. Good capillary refill. Source: Patient, Old records Exam Limitations: No limitations - Personal History Current Tetanus/Diphtheria Vaccine: No - Medical/Surgical History Hx Asthma: No Hx Chronic Respiratory Disease: No Hx Diabetes: No Hx Cardiac Disease: Yes Hx Renal Disease: No Hx Cirrhosis: No Hx Alcoholism: No Hx HIV/AIDS: No Hx Splenectomy or Spleen Trauma: No Other PMH: PMHx: Mitral valve disorder. PSHx: 2003 hysterectomy; mvr 2009 - Social History Smoking Status: Former smoker Constitutional: Initial Vital Signs Temperature (C) 36.8 C 12/17/17 10:11 Heart Rate 97 12/17/17 10:11 Respiratory Rate 17 12/17/17 10:11 Blood Pressure 99/74 L 12/17/17 10:11 O2 Sat (%) 95 12/17/17 10:11 O2 Delivery Mode Room Air O2 (L/minute) 2 Allergies/Adverse Reactions: indomethacin [Indomethacin] Allergy (Intermediate, Verified 12/17/17 10:09) DIZZINESS yeast, dried Allergy (Unknown, Verified 12/17/17 10:09) Unknown Home Medications: Medication Instructions Recorded Atorvastatin Calcium [Lipitor 20 20 mg PO DAILY@12 02/13/17 mg (*)] Herbals/Supplements -Info Only 1 ea PO DAILY 02/13/17 [place]-3 Fatty Acids [Fish Oil 1000 3,000 mg PO DAILY@12 02/13/17 mg (*)] Calcium Carbonate [Oyster Shell 500 mg PO DAILY@12 09/05/17 Calcium 500 mg (*)] Acetaminophen [Tylenol 325mg (*)] 650 mg PO Q4HRS PRN tab 09/07/17 Hydrocodone/APAP 5/325 [[place] 0.5 - 1 tab PO Q4HRS PRN #10 tab 09/07/17 5/325 (*)] Warfarin Sodium [Coumadin 5MG (*)] 7.5 mg PO HS #45 tab 09/07/17 Polyethylene Glycol 3350 [Miralax 17 gm PO DAILY #20 pkt 12/17/17 17 gm (*)] Medical Decision Making - Diagnostics Imaging Results: Imaging Impressions Abdomen CT 12/17/17 10:25 Impression: 1. No acute intraabdominal process. 2. Minimal diverticulosis of the descending and sigmoid colon. Mild constipation. 3. Normal appendix. 4. Small nonspecific hypodensity in right lobe of liver is unchanged. Findings discussed with Emergency Department physician, Dr. Yun Knox, on at 12:30 p.m. ED Course/Re-evaluation: EKG, labs, urinalysis, IV fluids, IV medications, CT abdomen and pelvis scan 1040: Given 1 L normal saline, IV Dilaudid x2 and IV Zofran Labs reviewed and show INR 3.7; no signs of anemia/leukocytosis/elevated LFTs/ electrolyte imbalance/pancreatitis/ACS/UTI CT abdomen and pelvis scan shows constipation; no other acute abdominal abnormality Patient will be started on MiraLax daily she politely decline magnesium citrate as she wants to go "slow" Passed p.o. trial prior to discharge in abdomen soft and nontender. No neurological deficits or signs of otitis media/sinusitis/vertigo. Patient has follow-up appointment with Dr. Sherman's PA tomorrow and primary care provider in 2 days. This patient was seen under the supervision of my primary supervising physician. I evaluated care for this patient independently. Differential Diagnosis: Dizziness including but not limited to peripheral and central causes of vertigo , orthostatic causes including dehydration, and blood loss. Abdominal pain including but not limited to appendicitis, diverticulitis, cholecystitis, gastritis and urinary tract infection. - Data Points Laboratory Results: Laboratory Results 12/17/17 10:44 12/17/17 10:44 12/17/17 12/17/17 12/17/17 11:40 10:44 10:44 WBC RBC Hgb POC Hgb Hct POC Hct MCV MCH MCHC RDW Plt Count MPV Neut % (Auto) Lymph % (Auto) [place] % (Auto) Eos % (Auto) Baso % (Auto) Nucleat RBC Rel Count Absolute Neuts (auto) Absolute Lymphs (auto) Absolute Monos (auto) Absolute Eos (auto) Absolute Basos (auto) Absolute Nucleated RBC Immature Gran % Immature Gran # PT 36.5 SEC H SEC (12.0-15.0) INR 3.72 H (0.83-1.16) APTT 51.9 SEC H SEC (23.0-38.0) POC Sodium Sodium 142 mEq/L mEq/L (135-145) POC Potassium Potassium 4.0 mEq/L mEq/L (3.5-5.2) POC Chloride Chloride 103 mEq/L mEq/L (97-110) Carbon Dioxide 24 mEq/l mEq/l (22-31) Anion Gap 15 mEq/L mEq/L (8-16) POC BUN BUN 7 mg/dL mg/dL (7-23) Creatinine 0.8 mg/dL mg/dL (0.6-1.0) POC Creatinine Estimated GFR > 60 Glucose 123 mg/dL H mg/dL (70-100) POC Glucose Calcium 10.0 mg/dL mg/dL (8.5-10.4) Total Bilirubin 0.8 mg/dL mg/dL (0.1-1.4) Conjugated Bilirubin 0.3 mg/dL mg/dL (0.0-0.5) Unconjugated Bilirubin 0.5 mg/dL mg/dL (0.0-1.1) AST 40 IU/L IU/L (14-46) ALT 35 IU/L IU/L (9-52) Alkaline Phosphatase 63 IU/L IU/L (38-126) Troponin I < 0.012 ng/mL ng/mL (0.000-0.034) Total Protein 7.4 g/dL g/dL (6.3-8.2) Albumin 4.3 g/dL g/dL (3.5-5.0) Lipase 61 IU/L IU/L (23-300) Urine Color YELLOW Urine Appearance CLEAR Urine pH 7.0 (5.0-7.5) Ur Specific [place] 1.006 (1.002-1.030) Urine Protein NEGATIVE (NEGATIVE) Urine Ketones NEGATIVE (NEGATIVE) Urine Blood NEGATIVE (NEGATIVE) Urine Nitrate NEGATIVE (NEGATIVE) Urine Bilirubin NEGATIVE (NEGATIVE) Urine Urobilinogen NEGATIVE EU EU (0.2-1.0) Ur Leukocyte Esterase 1+ H (NEGATIVE) Urine RBC NONE SEEN /hpf /hpf (0-3) Urine WBC 1-3 /hpf /hpf (0-3) Ur Epithelial Cells TRACE /lpf /lpf (NONE-1+) Urine Glucose NEGATIVE (NEGATIVE) 12/17/17 12/17/17 10:44 10:40 WBC 5.65 10^3/uL 10^3/uL (3.80-9.50) RBC 5.13 10^6/uL 10^6/uL (4.18-5.33) Hgb 15.9 g/dL g/dL (12.6-16.3) POC Hgb 15.6 gm/dL gm/dL (12.6-16.3) Hct 46.7 % % (38.0-47.0) POC Hct 46 % % (38-47) MCV 91.0 fL fL (81.5-99.8) MCH 31.0 pg pg (27.9-34.1) MCHC 34.0 g/dL g/dL (32.4-36.7) RDW 12.5 % % (11.5-15.2) Plt Count 201 10^3/uL 10^3/uL (150-400) MPV 10.0 fL fL (8.7-11.7) Neut % (Auto) 72.0 % % (39.3-74.2) Lymph % (Auto) 16.6 % % (15.0-45.0) [place] % (Auto) 9.7 % % (4.5-13.0) Eos % (Auto) 0.9 % % (0.6-7.6) Baso % (Auto) 0.4 % % (0.3-1.7) Nucleat RBC Rel Count 0.0 % % (0.0-0.2) Absolute Neuts (auto) 4.07 10^3/uL 10^3/uL (1.70-6.50) Absolute Lymphs (auto) 0.94 10^3/uL L 10^3/uL (1.00-3.00) Absolute Monos (auto) 0.55 10^3/uL 10^3/uL (0.30-0.80) Absolute Eos (auto) 0.05 10^3/uL 10^3/uL (0.03-0.40) Absolute Basos (auto) 0.02 10^3/uL 10^3/uL (0.02-0.10) Absolute Nucleated RBC 0.00 10^3/uL 10^3/uL (0-0.01) Immature Gran % 0.4 % % (0.0-1.1) Immature Gran # 0.02 10^3/uL 10^3/uL (0.00-0.10) PT INR APTT POC Sodium 141 mEq/L mEq/L (135-145) Sodium POC Potassium 3.8 mEq/L mEq/L (3.3-5.0) Potassium POC Chloride 103 mEq/L mEq/L (97-110) Chloride Carbon Dioxide Anion Gap POC BUN 6 mg/dL L mg/dL (7-23) BUN Creatinine POC Creatinine 0.8 mg/dL mg/dL (0.6-1.0) Estimated GFR Glucose POC Glucose 123 mg/dL H mg/dL (70-100) Calcium Total Bilirubin Conjugated Bilirubin Unconjugated Bilirubin AST ALT Alkaline Phosphatase Troponin I Total Protein Albumin Lipase Urine Color Urine Appearance Urine pH Ur Specific [place] Urine Protein Urine Ketones Urine Blood Urine Nitrate Urine Bilirubin Urine Urobilinogen Ur Leukocyte Esterase Urine RBC Urine WBC Ur Epithelial Cells Urine Glucose Medications Given: Discontinued Medications Hydromorphone HCl (Dilaudid) 1 mg IVP EDNOW ONE Stop: 12/17/17 10:26 Last Admin: 12/17/17 10:42 Dose: 1 mg Hydromorphone HCl (Dilaudid) 1 mg IVP EDNOW ONE Stop: 12/17/17 12:29 Last Admin: 12/17/17 12:29 Dose: 1 mg Sodium Chloride (Ns) 1,000 mls @ 0 mls/hr IV EDNOW ONE; Wide Open PRN Reason: Protocol Stop: 12/17/17 10:26 Last Admin: 12/17/17 10:42 Dose: 1,000 mls Ondansetron HCl (Zofran) 4 mg IVP EDNOW ONE Stop: 12/17/17 10:26 Last Admin: 12/17/17 10:43 Dose: 4 mg Point of Care Test Results: 12/17/17 10:40 POC Sodium 141 POC Potassium 3.8 POC Chloride 103 POC BUN 6 L POC Creatinine 0.8 POC Glucose 123 H Departure - Departure Disposition: Home, Routine, Self-Care Clinical Impression: Dizziness Constipation Qualifiers: Constipation type: drug induced constipation Qualified Code(s): K59.03 - Drug induced constipation Condition: Good Instructions: Polyethylene Glycol 3350 (By mouth), Constipation (ED), Dizziness (ED) Additional Instructions: Patient has been medically evaluated in the emergency room regarding her left lower quadrant pain and dizziness. She is to remain out of work until follow- up with her primary care provider on Friday to receive final clearance to return back to work. Take MiraLax twice daily x 3 days and then daily until having normal bowel movements every day. Keep your follow-up appointment tomorrow with Dr. vicki HAYNES and on Friday with your primary care provider. Referrals: Trinity Ahmadi MD [Primary Care Provider] - As per Instructions Stand Alone Forms: Work Excuse Prescriptions: Polyethylene Glycol 3350 [Miralax 17 gm (*)] 17 gm PO DAILY #20 pkt
--- NOTE | 2017-12-17 10:54 | CPEKG ---
Heart Rate: 90 RR Interval: 667 P-R Interval: 140 QRSD Interval: 104 QT Interval: 356 QTC Interval: 436 P [place]: -1 QRS [place]: 54 T Wave [place]: 22 EKG Severity - NORMAL ECG - EKG Impression: SINUS RHYTHM Electronically Signed By: Yun Knox 17-Dec-2017 15:06:20
[2017-12-17 10:56] LABS: PLATELET COUNT 201 10^3/uL (150-400)
[2017-12-17 11:05] LABS: INR 3.72 (0.83-1.16); PROTIME(PATIENT) 36.5 SEC (12.0-15.0)
[2017-12-17] MEDS ORDERED: IOPAMIDOL (ISOVUE-300) 100 ML BTL ONE (11:29)
[2017-12-17 12:14] VITALS: RESP 16
[2017-12-17] MEDS ORDERED: HYDROmorphONE/DILAUDID 1 MG/ML INJ ONE (12:25)
[2017-12-17 13:24] VITALS: BP 98/72; PULSE 83; O2SAT 93
== END 2017-12-17 13:35 | disposition home or self-care (01) ==
DX: R42 Dizziness and giddiness (principal); K59.03 Drug induced constipation; T50.905A Adverse effect of unspecified drugs, medicaments and biological substances, initial encounter; E86.9 Volume depletion, unspecified; Z79.01 Long term (current) use of anticoagulants; Z90.710 Acquired absence of both cervix and uterus; Z87.891 Personal history of nicotine dependence
CPT/HCPCS: 82947-QW; 96374; J1170; J2405; Q9967

== ENCOUNTER → 2018-01-07 | Outpatient (CLI) | payer MEDICAID | LOC: FIMAGING 16:03 | PROVIDERS: ATTEND Internal Medicine | DX: R42 Dizziness and giddiness (principal) ==

== ENCOUNTER 2018-04-06 09:52 | Emergency (ER) | payer MEDICAID ==
[2018-04-06 10:05] VITALS: BP 132/97
--- NOTE | 2018-04-06 10:17 | EDPHY ---
H & P Stated Complaint: R jaw pain Time Seen by Provider: 04/06/18 10:06 HPI/ROS: HPI: This is a 57-year-old female who presents with Chief Complaint: Right submandibular swelling Location: right submandibular area Quality: Swelling Duration: 24 hr Signs and Symptoms: + low-grade subjective fever, no nausea, no vomiting, no diarrhea, no urinary symptoms, no chest pain, no shortness of breath, no wheezing, no cough, no sore throat, no neck stiffness, no joint pain, + swollen glands, no ear pain, no rash Timing: Rapidly worsened Severity: Moderate Context: Patient has a history of mitral valve prolapse status post mitral valve replacement in 2010 and is on Coumadin presents with rapidly worsening over the last 24 hr of right swollen lymph node located below her right mandible. She reports that there is significant discomfort radiating into her right ear. She reports that she had a low-grade fever last night and complains of mild erythema over the area. She wears a CPAP at night and is not sure if the head strap rubbed on the area. She denies any dental pain/cracked tooth. She attempted to call her primary care provider this morning to be placed on Augmentin as this has happened in the past but was unable to get an appointment. She reports that her last dental exam was within the last 6 months. She is eating and drinking without any difficulty. Denies any pain with opening her jaw or chewing. Modifying Factors: None Comment: ROS: see HPI Constitutional: + low-grade subjective fever, no chills, no weight loss Eyes: No blurred vision Respiratory: No shortness of breath, no cough Cardiovascular: No chest pain, no palpitations Gastrointestinal: No nausea, no vomiting, no diarrhea, no hematemesis, no blood in stool Genitourinary: No dysuria, no blood in urine Extremities: No myalgias, no edema Neurologic: No weakness, no numbness Skin: No rashes, no petechiae Hematologic: No bruising, no bleeding MEDICAL/SURGICAL/SOCIAL HISTORY: PMHx: Mitral valve disorder, PSHx: 2003 hysterectomy; MVR 2010, colonoscopy with polyp removal, Social history: Works as a business support assistant. Family history noncontributory. CONSTITUTIONAL: Extremely polite nontoxic-appearing elderly white female, awake and alert, no obvious distress HEENT: Atraumatic and normocephalic, PERRL, EOMI. Nares patent; no rhinorrhea; no nasal mucosal edema. Tympanic membranes clear. Oropharynx clear, no exudate and moist pink mucosa. Airway patent. 4 mm mildly erythematous swollen anterior cervical lymph node below the right mandible; extremely tender to palpation. No meningismus. No TMJ tenderness. Cardiovascular: Normal S1/S2, regular rate, regular rhythm, without murmur rub or gallop. PULMONARY/CHEST: Symmetrical and nontender. Clear to auscultation bilaterally. Good air movement. No accessory muscle usage. ABDOMEN: Soft, nondistended, nontender, no rebound, no guarding, no peritoneal signs, no masses or organomegaly. No CVAT. EXTREMITIES: 2/2 pulses, strength 5/5, no deformities, no clubbing, no cyanosis or edema. NEUROLOGICAL: no focal neuro deficits. GCS 15. SKIN: Warm and dry, no erythema. no rash. Good capillary refill. Source: Patient, Old records Exam Limitations: No limitations - Personal History Current Tetanus/Diphtheria Vaccine: Unsure Current Tetanus Diphtheria and Acellular Pertussis (TDAP): Unsure - Medical/Surgical History Hx Asthma: No Hx Chronic Respiratory Disease: No Hx Diabetes: No Hx Cardiac Disease: Yes Hx Renal Disease: No Hx Cirrhosis: No Hx Alcoholism: No Hx HIV/AIDS: No Hx Splenectomy or Spleen Trauma: No Other PMH: PMHx: Mitral valve disorder,. PSHx: 2003 hysterectomy; mvr 2009, colonoscopy with polyp removal, - Social History Smoking Status: Former smoker Constitutional: Initial Vital Signs Temperature (C) 37.5 C 04/06/18 10:02 Heart Rate 92 04/06/18 10:02 Respiratory Rate 16 04/06/18 10:02 Blood Pressure 132/97 H 04/06/18 10:02 O2 Sat (%) 95 04/06/18 10:02 O2 Delivery Mode Room Air Allergies/Adverse Reactions: indomethacin [Indomethacin] Allergy (Intermediate, Verified 04/06/18 10:00) DIZZINESS yeast, dried Allergy (Unknown, Verified 04/06/18 10:00) Unknown Home Medications: Medication Instructions Recorded Atorvastatin Calcium [Lipitor 20 20 mg PO DAILY@12 02/13/17 mg (*)] Herbals/Supplements -Info Only 1 ea PO DAILY 02/13/17 [place]-3 Fatty Acids [Fish Oil 1000 3,000 mg PO DAILY@12 02/13/17 mg (*)] Calcium Carbonate [Oyster Shell 500 mg PO DAILY@12 09/05/17 Calcium 500 mg (*)] Acetaminophen [Tylenol 325mg (*)] 650 mg PO Q4HRS PRN tab 09/07/17 Warfarin Sodium [Coumadin 5MG (*)] 7.5 mg PO HS #45 tab 09/07/17 Amoxicillin/Clavulanate Pot 875 mg PO BID #20 tab 04/06/18 [Augmentin 875 MG TAB (*)] Co Q-10 04/06/18 Hydrocodone/APAP 5/325 [[place] 1 - 2 tab PO Q4H PRN #10 tab 04/06/18 5/325 (*)] Vitamin D3 04/06/18 Medical Decision Making ED Course/Re-evaluation: Vital signs stable upon arrival. Due to patient's mitral valve replacement, will proceed with starting antibiotics. No signs of airway compromise/Pedro angina/tonsillar abscess/OM Doubt abscess and need for ultrasound or CT imaging of the neck at this point. Patient does not have poor dentition. No need for anaerobic coverage. Started on Augmentin and given prescription for [place] #10 as patient unable to take NSAIDs. This patient was seen under the supervision of my secondary supervising physician. I evaluated care for this patient independently. Discussed this patient with Dr. Hidalgo who did not see the patient. Differential Diagnosis: Differential diagnosis includes but is not limited to cellulitis, salivary gland stone, parotitis, lymphangitis, toxoplasmosis, reactive adenitis, periapical abscess. Departure - Departure Disposition: Home, Routine, Self-Care Clinical Impression: Cervical lymphadenitis Condition: Good Instructions: Lymphadenopathy (ED) Additional Instructions: Apply warm compresses 2-3 times per day for 30 min at a time for the next 1-2 days. Take [place] every 6 hr as needed for severe/breakthrough pain. Symptoms should begin to improve over the next 48-72 hours. If there is no improvement in 72 hr, follow-up with your primary care provider for re-evaluation. Referrals: Trinity Ahmadi MD [Primary Care Provider] - 3-4 days, if not improved Prescriptions: Amoxicillin/Clavulanate Pot [Augmentin 875 MG TAB (*)] 875 mg PO BID #20 tab Hydrocodone/APAP 5/325 [[place] 5/325 (*)] 1 - 2 tab PO Q4H PRN #10 tab PRN Reason: Pain, Breakthrough
== END 2018-04-06 10:25 | disposition home or self-care (01) ==
DX: L04.0 Acute lymphadenitis of face, head and neck (principal); Z79.01 Long term (current) use of anticoagulants; Z87.891 Personal history of nicotine dependence

== ENCOUNTER 2018-06-10 10:02 | Emergency (ER) | payer MEDICAID ==
[2018-06-10 10:10] VITALS: BP 134/84
[2018-06-10] MEDS ORDERED: ERYTHROMYCIN 0.5% 1 GM OPHT.OINT RTEYE ONE (10:41)
[2018-06-10] MEDS ORDERED: AMOXICILLIN/CLAVULANATE POT 875/125 MG TAB PO ONE (10:41)
--- NOTE | 2018-06-10 10:41 | EDPHY ---
General - History Smoking Status: Former smoker Time Seen by Provider: 06/10/18 10:29 Narrative: CHIEF COMPLAINT: "Right eye infection" HISTORY OF PRESENT ILLNESS: Patient presents with complaints of "right eye infection."First noted symptoms on Friday involving the right upper eyelid. Described as mild on that day. Over the past few days it has increased. She now has some redness and swelling of the right upper eyelid. No pain in the eye. No change in her vision. No headache or fever. No neck pain or stiffness. No redness of the eye. She does not were contacts. She does wear a CPAP machine and she is concerned that this is coming from this that she has had this in the past. She does apply bacitracin to the eye once daily. She has no history of diabetes or chronic steroid use. No use of the margins. No other associated complaints or modifying factors MEDICAL/SURGICAL/SOCIAL HISTORY: Mitral valve replacement, mitral regurgitation, diverticulosis REVIEW OF SYSTEMS: Ten systems reviewed and are negative unless otherwise noted in the HPI EXAMINATION General Appearance: Alert, no distress Head: normocephalic, atraumatic ENT: Symmetric Pupils equal round reactive. Visual wilson intact by confrontation. There is no hyphema or subconjunctival hemorrhage. No injection. There is erythema of the upper eyelid margin consistent with blepharitis. No purulence. EOMs are symmetric and painless in all planes. Cardiovascular: Pulses normal throughout. With good signs of perfusion. Brisk cap refill Neurological: A&O, sensory symmetric, strength symmetric Skin: Warm and dry, no rash. There is minimal erythema of the right upper eyelid. There is no periorbital cellulitis. Extremities: Nontender, no pedal edema DIFFERENTIAL DIAGNOSES: Including but not limited to blepharitis, orbital cellulitis, periorbital cellulitis, conjunctivitis MDM: 10:30 a.m. Acute right-sided blepharitis with very mild conjunctivitis. No visual disturbance. Visual wilson and visual acute are within normal limits. She is not wear any contacts or corrective lens. She is well-appearing nontoxic. I do not think that periorbital or orbital cellulitis is likely. I do feel the blepharitis is her diagnosis. I will treat her for this with Augmentin and topical antibiotic ointment. Refer back to primary care physician and Ophthalmology for definitive care. ED precautions for fever, increasing redness or swelling, painful range of motion of the eye, decreased vision. She is comfortable this plan discharged stable condition. SUPERVISION: This patient was independently evaluated without direct involvement of or examination by the attending physician. ED Precautions: Worsening pain. Erythema, edema, cyanosis, pallor, paresthesia or anesthesia. (Koffi Reynoso) Medical Decision Making: PHYSICIAN DOCUMENTATION: The patient was evaluated and managed by the Physician Drum Filler. My co- signature indicates that I have reviewed this chart and I agree with the findings and plan of care as documented. I am the secondary supervising physician. (Kurt Zaldivar) - Objective Vital Signs: Initial Vital Signs Temperature (C) 36.8 C 06/10/18 10:07 Heart Rate 94 06/10/18 10:07 Respiratory Rate 16 06/10/18 10:07 Blood Pressure 134/84 H 06/10/18 10:07 O2 Sat (%) 96 06/10/18 10:07 O2 Delivery Mode Room Air Allergies/Adverse Reactions: indomethacin [Indomethacin] Allergy (Intermediate, Verified 06/10/18 10:06) DIZZINESS yeast, dried Allergy (Unknown, Verified 06/10/18 10:06) Unknown Home Medications: Medication Instructions Recorded Atorvastatin Calcium [Lipitor 20 20 mg PO DAILY@12 02/13/17 mg (*)] Herbals/Supplements -Info Only 1 ea PO DAILY 02/13/17 Rogers-3 Fatty Acids [Fish Oil 1000 3,000 mg PO DAILY@12 02/13/17 mg (*)] Calcium Carbonate [Oyster Shell 500 mg PO DAILY@12 09/05/17 Calcium 500 mg (*)] Acetaminophen [Tylenol 325mg (*)] 650 mg PO Q4HRS PRN tab 09/07/17 Warfarin Sodium [Coumadin 5MG (*)] 7.5 mg PO HS #45 tab 09/07/17 Amoxicillin/Clavulanate Pot 875 mg PO BID #20 tab 04/06/18 [Augmentin 875 MG TAB (*)] Co Q-10 04/06/18 Vitamin D3 04/06/18 Amoxicillin/Clavulanate Pot 875 mg PO BID #20 tab 06/10/18 [Augmentin 875 MG TAB (*)] Erythromycin 0.5% 1 gina OP TID #1 opht.oint 06/10/18 Medications Given: Discontinued Medications Amoxicillin/Clavulanate Potassium (Augmentin 875mg) 875 mg PO EDNOW ONE PRN Reason: Protocol Stop: 06/10/18 10:42 Last Admin: 06/10/18 11:01 Dose: 875 mg Erythromycin (Erythromycin 0.5%) 1 gina RTEYE ONCE ONE Stop: 06/10/18 10:42 Last Admin: 06/10/18 11:01 Dose: 1 gina Departure - Departure Disposition: Home, Routine, Self-Care Clinical Impression: Blepharitis of eyelid of right eye Qualifiers: Blepharitis type: unspecified type Eyelid: upper Qualified Code(s): H01.001 - Unspecified blepharitis right upper eyelid Condition: Good Instructions: Blepharitis (ED) Additional Instructions: 1. Erythromycin ointment to the right eye 3 times daily while awake for 7 days. 2. Augmentin twice daily for 10 days 3. Follow up with primary care physician and awning craftsman for definitive care 4. ED precautions for worsening symptoms, changes in vision, headache, fever Referrals: Trinity Ahmadi MD [Primary Care Provider] - As per Instructions Kirsty Noyola MD [Non Staff Provider (MD)] - As per Instructions Stand Alone Forms: Work Excuse Prescriptions: Amoxicillin/Clavulanate Pot [Augmentin 875 MG TAB (*)] 875 mg PO BID #20 tab Erythromycin 0.5% 1 gina OP TID #1 opht.oint
== END 2018-06-10 11:17 | disposition home or self-care (01) ==
DX: H01.001 Unspecified blepharitis right upper eyelid (principal); Z79.01 Long term (current) use of anticoagulants; Z87.891 Personal history of nicotine dependence

== ENCOUNTER 2018-09-25 12:45 | Emergency (ER) | payer MEDICAID ==
--- NOTE | 2018-09-25 14:43 | EDPHY ---
H & P Time Seen by Provider: 09/25/18 14:39 HPI/ROS: CHIEF COMPLAINT: Abdominal pain for 2 days HISTORY OF PRESENT ILLNESS: History of diverticulitis, history of mitral valve replacement on warfarin. Has had intermittent abdominal pain over the last week but worse for the last 2 days. She describes it more in her lower than her upper abdomen and not better worse with eating. She had avocado and cottage cheese for breakfast and did not change her symptoms. Not associated with urinary symptoms or fever, she does have nausea but no vomiting or diarrhea. Symptoms moderate. REVIEW OF SYSTEMS: Eye: no change in vision ENT: no sore throat Cardiac: No palpitations or syncope. She had 2 episodes of sharp central chest pain which lasted only seconds, 1 yesterday and 1 today. Pulmonary: no cough or SOB Abdomen: HPI Musculoskeletal: Chronic back and shoulder pain unchanged Skin: no rash Neuro: no headache Constitutional: no fever : no urinary symptoms A comprehensive 10 point review of systems is otherwise negative aside from elements mentioned in the history of present illness. PAST MEDICAL HISTORY: Includes mitral valve replacement on warfarin, hysterectomy, history of diverticulitis. Chronic back and shoulder pain. Social history: Currently nonsmoker General Appearance: Alert and conversant, cooperative. Eyes: No scleral icterus. ENT, Mouth: Normal mucous membranes. Respiratory: Normal respiratory effort, breath sounds equal, lungs are clear to auscultation. Cardiovascular: Regular rate and rhythm. Gastrointestinal: Bilateral lower abdominal pain to palpation without guarding or rebound. Neurological: Alert, face symmetric, normal motor and sensory in extremities. Skin: Warm and dry, no rashes. Musculoskeletal: No peripheral edema. Psychiatric: Not agitated. Emergency Department course/MDM: Patient has very atypical chest symptoms with normal EKG, I think ACS would be unlikely. CT scanning discussed and consented to evaluate for the possibility of appendicitis or diverticulitis. Dilaudid 0.5 mg IV and Zofran 4 mg IV for nausea. Per Josh at 4:[address], constipation, no diverticulitis and normal appendix seen. 1648: Results discussed plan to discharge home if urine negative. Smoking Status: Former smoker Constitutional: Initial Vital Signs Temperature (C) 36.5 C 09/25/18 13:00 Heart Rate 95 09/25/18 13:00 Respiratory Rate 18 09/25/18 13:00 Blood Pressure 114/84 H 09/25/18 13:00 O2 Sat (%) 95 09/25/18 13:00 O2 Delivery Mode Room Air Allergies/Adverse Reactions: indomethacin [Indomethacin] Allergy (Intermediate, Verified 09/25/18 13:00) DIZZINESS yeast, dried Allergy (Unknown, Verified 09/25/18 13:00) Unknown Home Medications: Medication Instructions Recorded Atorvastatin Calcium [Lipitor 20 20 mg PO DAILY@12 02/13/17 mg (*)] Herbals/Supplements -Info Only 1 ea PO DAILY 02/13/17 Mclean-3 Fatty Acids [Fish Oil 1000 3,000 mg PO DAILY@12 02/13/17 mg (*)] Calcium Carbonate [Oyster Shell 500 mg PO DAILY@12 09/05/17 Calcium 500 mg (*)] Acetaminophen [Tylenol 325mg (*)] 650 mg PO Q4HRS PRN tab 09/07/17 Warfarin Sodium [Coumadin 5MG (*)] 7.5 mg PO HS #45 tab 09/07/17 Amoxicillin/Clavulanate Pot 875 mg PO BID #20 tab 04/06/18 [Augmentin 875 MG TAB (*)] Co Q-10 04/06/18 Vitamin D3 04/06/18 Amoxicillin/Clavulanate Pot 875 mg PO BID #20 tab 06/10/18 [Augmentin 875 MG TAB (*)] Erythromycin 0.5% 1 gina OP TID #1 opht.oint 06/10/18 Medical Decision Making - Diagnostics EKG Interpretation: 12-lead EKG interpreted by me; official reading is in computer system. My interpretation is sinus rhythm with low precordial voltage but no ischemic changes normal intervals. Imaging Results: Imaging Impressions Abdomen CT 09/25/18 15:19 Impression: 1. New mild L3 compression deformity since November 2017. 2. Suspect constipation. 3. No evidence for bowel obstruction , perforation or appendicitis. Results called to Dr. Hidalgo at 4:23 PM. General information for patients regarding this examination can be found at [email or web address]. If you have questions or comments about this report, please contact me at (hospital) or [phone] (cell). Differential Diagnosis: Differential diagnosis considered for abdominal pain including but not limited to diverticulitis, appendicitis, cholecystitis, pancreatitis, gastritis and urinary tract infection. - Data Points Laboratory Results: Laboratory Results 09/25/18 14:32 09/25/18 14:32 09/25/18 09/25/18 09/25/18 14:39 14:32 14:32 WBC 8.97 10^3/uL 10^3/uL (3.80-9.50) RBC 5.15 10^6/uL 10^6/uL (4.18-5.33) Hgb 15.9 g/dL g/dL (12.6-16.3) Hct 47.4 % H % (38.0-47.0) MCV 92.0 fL fL (81.5-99.8) MCH 30.9 pg pg (27.9-34.1) MCHC 33.5 g/dL g/dL (32.4-36.7) RDW 12.6 % % (11.5-15.2) Plt Count 235 10^3/uL 10^3/uL (150-400) MPV 9.9 fL fL (8.7-11.7) Neut % (Auto) 60.9 % % (39.3-74.2) Lymph % (Auto) 28.8 % % (15.0-45.0) Nuckolls % (Auto) 7.1 % % (4.5-13.0) Eos % (Auto) 2.8 % % (0.6-7.6) Baso % (Auto) 0.3 % % (0.3-1.7) Nucleat RBC Rel Count 0.0 % % (0.0-0.2) Absolute Neuts (auto) 5.46 10^3/uL 10^3/uL (1.70-6.50) Absolute Lymphs (auto) 2.58 10^3/uL 10^3/uL (1.00-3.00) Absolute Monos (auto) 0.64 10^3/uL 10^3/uL (0.30-0.80) Absolute Eos (auto) 0.25 10^3/uL 10^3/uL (0.03-0.40) Absolute Basos (auto) 0.03 10^3/uL 10^3/uL (0.02-0.10) Absolute Nucleated RBC 0.00 10^3/uL 10^3/uL (0-0.01) Immature Gran % 0.1 % % (0.0-1.1) Immature Gran # 0.01 10^3/uL 10^3/uL (0.00-0.10) Sodium 139 mEq/L mEq/L (135-145) Potassium 4.4 mEq/L mEq/L (3.3-5.0) Chloride 108 mEq/L mEq/L (97-110) Carbon Dioxide 23 mEq/l mEq/l (22-31) Anion Gap 8 mEq/L mEq/L (6-14) BUN 12 mg/dL mg/dL (7-23) Creatinine 0.7 mg/dL mg/dL (0.6-1.0) Estimated GFR > 60 Glucose 102 mg/dL H mg/dL (70-100) Calcium 10.4 mg/dL mg/dL (8.5-10.4) POC Troponin I 0.00 ng/mL ng/mL (0.00-0.08) Medications Given: Discontinued Medications Hydromorphone HCl (Dilaudid) 0.5 mg IVP EDNOW ONE Stop: 09/25/18 15:01 Last Admin: 09/25/18 15:33 Dose: 0.5 mg Sodium Chloride (Ns) 1,000 mls @ 0 mls/hr IV EDNOW ONE; Wide Open PRN Reason: Protocol Stop: 09/25/18 15:01 Last Admin: 09/25/18 15:34 Dose: 1,000 mls Ondansetron HCl (Zofran) 4 mg IVP EDNOW ONE Stop: 09/25/18 15:01 Last Admin: 09/25/18 15:33 Dose: 4 mg Point of Care Test Results: Chemistry 09/25/18 14:39 POC Troponin I 0.00 ng/mL ng/mL (0.00-0.08) Departure - Departure Disposition: Home, Routine, Self-Care Clinical Impression: Abdominal pain Qualifiers: Abdominal location: lower abdomen, unspecified Qualified Code(s): R10.30 - Lower abdominal pain, unspecified Condition: Good Instructions: Acute Abdominal Pain (ED) Referrals: Trinity Ahmadi MD [Primary Care Provider] - As per Instructions
[2018-09-25 14:52] LABS: PLATELET COUNT 235 10^3/uL (150-400)
[2018-09-25] MEDS ORDERED: NS 1,000 ML IV ONE (15:00)
[2018-09-25] MEDS ORDERED: ONDANSETRON 4 MG/2 ML VIAL IVP ONE (15:00)
[2018-09-25] MEDS ORDERED: HYDROmorphONE/DILAUDID 2 MG/ML INJ IVP ONE (15:00)
--- NOTE | 2018-09-25 15:03 | CPEKG ---
Test Reason : OPEN Blood Pressure : / mmHG Vent. Rate : 088 BPM Atrial Rate : 088 BPM P-R Int : 134 ms QRS Dur : 094 ms QT Int : 368 ms P-R-T Axes : 013 046 017 degrees QTc Int : 446 ms Sinus rhythm Low voltage, precordial leads Confirmed by Sven Hidalgo ([id number]) on 09/25/2018 3:02:44 PM Referred By: Confirmed By:Sven Hidalgo
[2018-09-25] MEDS ORDERED: IOPAMIDOL (ISOVUE-300) 100 ML BTL ONE (15:25)
[2018-09-25 18:07] VITALS: BP 121/86
== END 2018-09-25 18:12 | disposition home or self-care (01) ==
DX: R10.30 Lower abdominal pain, unspecified (principal); E86.9 Volume depletion, unspecified; Z95.4 Presence of other heart-valve replacement; Z87.19 Personal history of other diseases of the digestive system; Z79.01 Long term (current) use of anticoagulants
CPT/HCPCS: 84484-PO; 96374; J1170; J2405; Q9967

== ENCOUNTER → 2018-11-03 | Outpatient (CLI) | payer MEDICAID | LOC: FIMAGING 11:56 | PROVIDERS: ATTEND Advanced Practice Midwife | DX: Z12.31 Encounter for screening mammogram for malignant neoplasm of breast (principal) ==